=== PATIENT | female | born 1990 | race Caucasian/White ===

== ENCOUNTER 2019-08-16 12:00 | Emergency (ER) | payer OTHER, SELFPAY ==
--- NOTE | 2019-08-16 12:06 | ED.GENADULT ---
HPI - General Adult General Chief complaint: Upper Respiratory Infection Stated complaint: cough/ear pn/fever/chest feels tight Time Seen by Provider: 08/16/19 12:24 Source: patient Mode of arrival: ambulatory Limitations: no limitations History of Present Illness HPI narrative: 29-year-old female patient presents to the [facility] with complaints of cold symptoms for the past week. Patient states that she has had some bilateral ear pain. Patient states that she did recently fly to [place] and states that her ears have been feeling very full and feels like there is a lot of pressure behind her ears and is very painful since flying. Patient states she is also had runny nose, stuffy nose, coughing and a sore throat. Patient states that her kids recently did have influenza B and strep. Patient denies getting a flu shot. Related Data Home Medications Medication Instructions Recorded Confirmed cetirizine 10 mg tablet 10 mg PO DAILY 05/09/19 08/16/19 ferrous sulfate 27 mg PO DAILY 08/16/19 08/16/19 Allergies Allergy/AdvReac Type Severity Reaction Status Date / Time hydrocodone Allergy Unknown Nausea and Verified 08/16/19 12:18 Vomiting Review of Systems Review of Systems: Narrative: CONSTITUTIONAL: Positive fever, body aches, chills, and sweats. EYES: Denies visual changes, redness, or discharge. ENT: Positive rhinorrhea, congestion, sore throat, and bilateral otalgia. CARDIOVASCULAR: Denies chest pain, palpitations, or edema. RESPIRATORY: Positive cough, denies dyspnea. GASTROINTESTINAL: Denies abdominal pain, nausea, vomiting, or diarrhea. GENITOURINARY: Denies dysuria or hematuria. SKIN: Denies rash or itching. MUSCULOSKELETAL: Denies back pain, joint pain, or myalgia. NEUROLOGIC: Denies headache, numbness, or weakness. PSYCHIATRIC: Denies anxiety or depression. [facility] Past Medical History Medical History Anxiety with depression Left elbow fracture Skin lesion Surgical History Surgical History deliv NOS-unsp H/O elbow surgery 2018 H/O wrist surgery 2018 Family History Family History Father No problems noted. Social History Social History Smoking status: Former smoker Smoking end date: 06/20/10 Alcohol intake: current Comments At the time of my signature I agree with nursing past medical history, surgical, social, and family history. There is no relevant family history pertinent to the presenting complaint. Exam Narrative: Exam Narrative: GENERAL: ill-appearing, well-nourished, and in no acute distress. HEAD: Normocephalic, atraumatic. EYES: PERRLA and EOMI. ENT: Nares clear, no rhinorrhea or epistaxis. Mucous membranes moist. Posterior pharynx with no erythema, tonsil enlargement, exudates or lesions present. Bilateral TMs do appear to have a little bit of fluid behind them and you have erythema. No foreign bodies noted to the canal. NECK: Supple. No lymphadenopathy CHEST: Clear to auscultation. No respiratory distress. HEART: Regular rate and rhythm. No murmur heard. Normal peripheral pulses. ABDOMEN: Soft, nontender, nondistended, normal active bowel sounds. EXTREMITIES: Normal range of motion. No edema. SKIN: Warm, dry, no rash. NEURO: No focal deficits. Alert and oriented x3. Course Vital Signs Vital signs: Vital Signs Temperature 37.3 C 08/16/19 12:19 Pulse Rate 117 H 08/16/19 12:19 Respiratory Rate 08/16/19 12:19 Blood Pressure 105/77 08/16/19 12:19 Pulse Oximetry 100 08/16/19 12:19 Temperature 37.3 C 08/16/19 12:19 Pulse Rate 117 H 08/16/19 12:19 Respiratory Rate 08/16/19 12:19 Blood Pressure 105/77 08/16/19 12:19 Pulse Oximetry 100 08/16/19 12:19 Vital signs reviewed. Medical Decision Making Diff
[2019-08-16 12:19] VITALS: BP 105/77; PULSE 117; RESP 20; TEMP 37.3; O2SAT 100
== END 2019-08-16 12:40 | disposition home or self-care (01) ==
PROVIDERS: Emergency Provider Nurse Practitioner Family; PCP Internal Medicine
DX: J10.1 Influenza due to other identified influenza virus with other respiratory manifestations (principal); H66.93 Otitis media, unspecified, bilateral; D64.9 Anemia, unspecified; Z87.891 Personal history of nicotine dependence
CPT/HCPCS: 87804; 87880; 99213; G0463

== ENCOUNTER 2019-10-31 15:55 | Emergency (ER) | payer OTHER, SELFPAY ==
[2019-10-31 15:58] VITALS: BP 109/71; PULSE 95; RESP 20; TEMP 36.8; O2SAT 100
--- NOTE | 2019-10-31 16:52 | ED.FEMALEGU ---
HPI - Female Genitourinary General Chief complaint: Urogenital-Female Stated complaint: UTI sypmtoms Time Seen by Provider: 10/31/19 16:28 Source: patient Mode of arrival: ambulatory Limitations: no limitations History of Present Illness HPI Narrative: Patient is a 29-year-old female who presents to the emergency department with complaint of UTI symptoms. Patient has had symptoms for approximately 2 weeks. Patient tried [id number] urinary analgesic with minimal relief. Patient had a virtual visit with primary care yesterday and was prescribed Bactrim DS for 3 days. Patient was given order for urology referral and a UA after she completes treatment. Patient has prior history of frequent urinary tract infections and is seen urology in the past. After her visit yesterday, she is subsequently developed nausea and vomiting as well as fever of 101. Patient did take 2 doses of her antibiotic. MD elicited complaint: UTI Pertinent past history: recurrent UTIs Onset (ago): week(s) Urinary symptoms: Dysuria, Frequency, Foul Smelling Urine and Flank Pain Associated symptoms: abdominal pain, fever, chills, nausea, vomiting and back pain Treatment prior to arrival: other (Trimethoprim/sulfamethoxazole x2 doses) Related Data Home Medications Medication Instructions Recorded Confirmed cetirizine 10 mg tablet 10 mg PO DAILY 05/09/19 08/16/19 escitalopram oxalate 5 mg tablet 5 mg PO DAILY 10/30/19 Allergies Allergy/AdvReac Type Severity Reaction Status Date / Time hydrocodone Allergy Unknown Nausea and Verified 10/31/19 16:01 Vomiting Review of Systems Review of Systems: All systems reviewed & are unremarkable except as noted in HPI and below Constitutional: Constitutional: Reports chills and Reports fever(s) Gastrointestinal: Gastrointestinal: Reports abdominal pain, Reports nausea and Reports vomiting Genitourinary: Genitourinary: Reports nocturia, Reports dysuria and Reports flank pain Musculoskeletal: Musculoskeletal: Reports back pain [facility] Surgical History Surgical History deliv NOS-unsp H/O elbow surgery 2018 H/O wrist surgery 2018 Social History Social History Smoking status: Former smoker Smoking end date: 06/20/10 Alcohol intake: current Exam Const: General: cooperative, no acute distress and alert Nutritional Appearance: well nourished Orientation/consciousness: patient oriented x3 Limitations: no limitations Resp: Effort & Inspection: normal respiratory effort Auscultation: clear to auscultation bilaterally Cardio: Rate: regular rate Rhythm: regular rhythm GI: GI Palp: Yes Soft to palpation and Yes Tenderness to palpation present (GI) (Diffuse lower abdomen and left flank) Auscultation: normal bowel sounds Back/Spine/Pelvis: Back: CVA tenderness (Bilateral, left worse than) Thoracic/Lumbar Spine: thoraco-lumbar ROM normal Skin: General skin exam: normal color and no rashes or lesions noted Neuro: General: patient oriented x3 Cognition (Neuro): normal cognition Speech: normal speech Extrem: General: normal to inspection, full ROM and no clubbing, cyanosis or edema Psych: Mental Status: mental status grossly normal Affect: normal affect Attitude: cooperative Course Course Emergency Course: Patient afebrile in the emergency department with unremarkable labs. Minimal pyuria noted on urinalysis. Patient has already been on antibiotics for 24 hours and suspect partially treated UTI. Patient given Rocephin in the emergency department. She feels better after IV fluids, Toradol, and Zofran. Will give Zofran to take at home and advised to continue current antibiotic and follow-up urine culture results with her primary care physician's office in the next couple of days. Patient is nontoxic with no evidence of pyelonephritis or sepsis. Vital Signs Vital si
[2019-10-31] MEDS: KETOROLAC 30 MG/ML VIAL (*BKC) IV PUSH (17:05)
[2019-10-31] MEDS: ONDANSETRON INJ 4 MG/2 ML VIAL IV PUSH (17:05)
[2019-10-31] MEDS: LACTATED RINGERS 1,000 ML 999 ML IV CONT (17:06)
[2019-10-31 17:21] LABS: Basophils Percent Auto 0.5 % (0.2-1.2); Eosinophils Percent Auto 0.3 % (0-4.4); Hematocrit 40.4 % (37.0-47.0); Hemoglobin 13.7 g/dL (12.0-15.0); Immature Granulocyte Absolute 0.01 K/mm3 (0.00-0.031); Immature Granulocyte Percent A 0.2 % (0-0.5); Lymphocytes Percent Auto 30.8 % (18.3-44.2); Mean Corpuscular HGB Conc 33.9 g/dl (32-36); Mean Corpuscular Hemoglobin 31.1 pg (26-34); Mean Corpuscular Volume 91.8 fl (80-100); Mean Platelet Volume 10.1 fl (7.4-10.4); Monocytes Absolute Auto 0.4 K/mm3 (0.1-0.6); Monocytes Percent Auto 7.1 % (2.6-8.5); Neutrophils Absolute Auto 3.8 K/mm3 (1.3-6.7); Neutrophils Percent Auto 61.1 % (45.5-73.1); Platelet Count Result 184 k/mm3 (150-375); Red Cell Distribution Width 13.1 % (11.5-14.5); White Blood Count 6.2 K/mm3 (4.5-10.0)
[2019-10-31 17:26] LABS: Add Urine Microscopic? YES; Amorphous Sediment Urine Few; Appearance Urine Clear (Clear); Bacteria Urine Trace /hpf; Bilirubin Urine Negative (Negative); Blood Urine Negative (Negative); Color Urine Straw (Yellow); Glucose Urine UA Negative (Negative); Ketones Urine Negative (Negative); Leukocyte Esterase Ur 2+ LEU/UL (Negative); Mucus Urine Rare /lpf; Nitrate Urine Negative (Negative); Protein Urine Negative (Negative); RBC Urine 0-2 /hpf (0-2); Specific Grav Ur 1.009 (1.001-1.035); Squamous Epithelial Cell Urine Many /hpf (Few); Urobilinogen Urine Negative mg/dL (<2.0)
[2019-10-31 17:29] LABS: Alanine Aminotransferase 10 U/L (4-35); Albumin Level 4.3 g/dL (3.5-5.1); Alkaline Phosphatase 49 U/L (38-126); Aspartate Amino Transferase 24 U/L (14-36); Blood Urea Nitrogen 10 mg/dL (7-17); Calcium 8.2 mg/dL (8.4-10.2); Carbon Dioxide 19 mmol/L (22-30); Chloride 108 mmol/L (98-107); Estimated Glomerular Filt Rate > 60; Glucose 77 mg/dL (65-105); Potassium 4.1 mmol/L (3.4-5.0); Sodium 136 mmol/L (137-145)
[2019-10-31 18:02] VITALS: BP 101/67; PULSE 68
[2019-10-31 18:03] VITALS: BP 102/76; BP 118/74; PULSE 66; PULSE 73
[2019-10-31 20:22] VITALS: BP 112/74; PULSE 91; RESP 16; TEMP 36.7; O2SAT 99
== END 2019-10-31 20:22 | disposition home or self-care (01) ==
PROVIDERS: Emergency Provider Emergency Medicine; PCP Internal Medicine
DX: N30.00 Acute cystitis without hematuria (principal); Z87.891 Personal history of nicotine dependence
CPT/HCPCS: 36415; 80053; 81001; 81025; 85025; 87086; 96361; 96365; 96375; 99284; J0696; J1885; J2405; J7120

== ENCOUNTER 2019-11-06 16:12 | Outpatient (CLI) | payer OTHER, SELFPAY ==
[2019-11-06 16:47] LABS: Add Urine Microscopic? NO; Appearance Urine Clear (Clear); Bilirubin Urine Negative (Negative); Blood Urine Negative (Negative); Color Urine Colorless (Yellow); Glucose Urine UA Negative (Negative); Ketones Urine Negative (Negative); Leukocyte Esterase Ur Negative LEU/UL (Negative); Nitrate Urine Negative (Negative); Protein Urine Negative (Negative); Specific Grav Ur 1.005 (1.001-1.035); Urobilinogen Urine Negative mg/dL (<2.0)
== END 2019-11-06 16:13 | disposition home or self-care (01) ==
PROVIDERS: PCP Internal Medicine; Visit Provider Clinical Nurse Specialist
DX: N39.0 Urinary tract infection, site not specified (principal)
CPT/HCPCS: 81003

== ENCOUNTER 2019-12-05 12:10 | Emergency (ER) | payer OTHER, SELFPAY ==
--- NOTE | 2019-12-05 12:35 | ED.FEMALEGU ---
HPI - Female Genitourinary General Chief complaint: Urogenital-Female Stated complaint: uti Time Seen by Provider: 12/05/19 13:20 Source: patient and RN notes reviewed Mode of arrival: ambulatory Limitations: no limitations History of Present Illness HPI Narrative: 29-year-old female presents with concern for possible urinary tract infection. Reports history of frequent urinary tract infections. Reports left flank pain, frequency, urgency, dysuria for 2 days. Reports nausea without vomiting. Reports she has been increasing her fluid intake. Reports fever up to 102. MD elicited complaint: UTI Related Data Home Medications Medication Instructions Recorded Confirmed cetirizine 10 mg tablet 10 mg PO DAILY 05/09/19 08/16/19 escitalopram oxalate 5 mg tablet 5 mg PO DAILY 10/30/19 Albuterol Neb. 12/05/19 Allergies Allergy/AdvReac Type Severity Reaction Status Date / Time hydrocodone Allergy Unknown Nausea and Verified 10/31/19 16:01 Vomiting Review of Systems Review of Systems: Narrative: CONSTITUTIONAL: Denies malaise, chills, sweats. Reports fever. CARDIOVASCULAR: Denies chest pain, palpitations, or edema. RESPIRATORY: Denies cough or dyspnea. GASTROINTESTINAL: Denies abdominal pain, vomiting, diarrhea. Reports nausea GENITOURINARY: Reports dysuria, frequency, urgency. Denies abnormal vaginal discharge or hematuria. MUSCULOSKELETAL: Reports left flank pain. Denies myalgia. NEUROLOGIC: Denies headache. All systems reviewed & are unremarkable except as noted in HPI and below PMFSH Social History Social History Smoking status: Former smoker Smoking end date: 06/20/10 Alcohol intake: current Comments At time of signature, agree with nursing past medical, surgical, social and family history. There is no relevant family history pertinent to the presenting complaint Exam Narrative: Exam Narrative: GENERAL: Well-appearing, well-nourished, and in no acute distress. HEAD: Normocephalic. EYES: PERRLA, conjunctivae clear. NECK: Supple. No lymphadenopathy CHEST: Clear to auscultation. No respiratory distress. HEART: Regular rate and rhythm. No murmur heard. Normal peripheral pulses. ABDOMEN: Soft, nontender upon palpation, nondistended. Left CVA tenderness SKIN: Warm, dry, no rash. NEURO: Alert and oriented x3. PSYCH: Normal mood and affect Course Course Emergency Course: Discussed with patient limited diagnostic capability at the [facility]. Discussed with patient possibility of transfer to emergency room for further evaluation. Patient at this time chooses to treat possible urinary tract infection with antibiotic instead of going to the emergency room for further evaluation. She reports she will go to emergency room if symptoms worsen or do not improve, verbalizes understanding of reasons to go the emergency room. Discussed with patient urine culture results from urinalysis done on October 31, 2019 when she was previously having urinary tract infection symptoms. Patient understands this culture did not grow bacteria. Patient is aware of diagnosis, understands and agrees to treatment plan. Anticipatory guidance given. Patient agrees to follow-up as directed and is aware of reasons to seek care at the emergency department. Portions of this record may have been created with voice recognition software Vital Signs Vital signs: Vital Signs Temperature 99.2 F 12/05/19 13:02 Pulse Rate 85 12/05/19 13:02 Respiratory Rate 16 12/05/19 13:02 Blood Pressure 109/64 12/05/19 13:02 Pulse Oximetry 98 12/05/19 13:02 Temperature 99.2 F 12/05/19 13:02 Pulse Rate 85 12/05/19 13:02 Respiratory Rate 16 12/05/19 13:02 Blood Pressure 109/64 12/05/19 13:02 Pulse Oximetry 98 12/05/19 13:02 Reviewed. MDM - Female Genitourinary MDM Narrative Medical decision making narrative: Exam findings and UA show no acute concerns or escobar
[2019-12-05 13:02] VITALS: BP 109/64; PULSE 85; RESP 16; TEMP 37.3; O2SAT 98
== END 2019-12-05 13:37 | disposition home or self-care (01) ==
PROVIDERS: Emergency Provider Nurse Practitioner; PCP Internal Medicine
DX: R30.0 Dysuria (principal); R35.0 Frequency of micturition; R10.9 Unspecified abdominal pain; Z87.891 Personal history of nicotine dependence; J45.909 Unspecified asthma, uncomplicated; Z87.442 Personal history of urinary calculi; Z86.2 Personal history of diseases of the blood and blood-forming organs and certain disorders involving the immune mechanism
CPT/HCPCS: 81003; 87086; 99213; G0463

== ENCOUNTER 2019-12-08 09:48 | Emergency (ER) | payer OTHER, SELFPAY ==
--- NOTE | ~2019-12-08 | CT_ITS ---
EXAMINATION: CT abdomen pelvis wo con DATE: 12/08/2019 10:51 INDICATION: Left-sided abdominal pain TECHNIQUE: Computed tomography (CT) of the abdomen and pelvis was performed without intravenous contr ast. The dose-length product was 182.69 mGy-cm. Automated exposure control and iterative reconstructi on technique were employed. COMPARISON: CT dated 05/11/2019 FINDINGS: Lung bases are unremarkable. Heart size normal. No significant pleural or pericardial effus ion. The liver, spleen, pancreas, adrenal glands and kidneys are unremarkable for noncontrast CT. Nonobstr uctive bowel gas pattern. No free air or free fluid. Gallbladder is present. There is a U-shaped tani ce in the vagina. No free air or free fluid. No acute osseous abnormality. IMPRESSION: 1. No acute abdominal abnormality. Reviewed, dictated and finalized at location A.
[2019-12-08 09:54] VITALS: BP 115/79; PULSE 74; RESP 18; TEMP 36.8; O2SAT 100
--- NOTE | 2019-12-08 10:24 | ED.ABDPAIN ---
HPI - Abdominal Pain General Chief Complaint: Abdominal Pain Stated Complaint: L sided abd pain Time Seen by Provider: 12/08/19 10:07 Source: patient Mode of arrival: ambulatory Limitations: no limitations History of Present Illness HPI narrative: This is a 29 year old female that presents to the ER for left sided flank pain x 1 week. Reports dysuria which has improved after being treated for a UTI at the urgent care 3 days ago. Reports she has continued to have left flank pain which prompted her to be seen. Reports the pain is constant and sharp. Also reports nausea. Worse when she lays down. Denies fever, vomiting, hematuria, or diarrhea. Related Data Home Medications Medication Instructions Recorded Confirmed cetirizine 10 mg tablet 10 mg PO DAILY 05/09/19 08/16/19 escitalopram oxalate 5 mg tablet 5 mg PO DAILY 10/30/19 Allergies Allergy/AdvReac Type Severity Reaction Status Date / Time hydrocodone Allergy Unknown Nausea and Verified 12/08/19 09:57 Vomiting Review of Systems Review of Systems: Narrative: CONSTITUTIONAL: Denies fever GASTROINTESTINAL: Reports abdominal pain, nausea. Denies vomiting, or diarrhea. GENITOURINARY: Denies dysuria or hematuria. MUSCULOSKELETAL: Reports back pain All systems reviewed & are unremarkable except as noted in HPI and below PMFSH Social History Social History Smoking status: Former smoker Smoking end date: 06/20/10 Alcohol intake: current Gender identity (if verbalized by the patient): Female Exam Narrative: Exam Narrative: GENERAL: Well-appearing, well-nourished, and in no acute distress. HEAD: Normocephalic, atraumatic. EYES: EOMI. CHEST: Clear to auscultation. No respiratory distress. No wheezes rales or rhonchi HEART: Regular rate and rhythm. No murmur heard. Normal peripheral pulses. ABDOMEN: Soft, nondistended, normal active bowel sounds. Mild tenderness to palpation of the left side of the abdomen, without guarding EXTREMITIES: Normal range of motion. No edema. SKIN: Warm, dry, no rash. NEURO: No focal deficits. Alert and oriented x3. PSYCH: Normal mood and affect Course Vital Signs Vital signs: Vital Signs Temperature 98.3 F 12/08/19 09:54 Pulse Rate 74 12/08/19 09:54 Respiratory Rate 18 12/08/19 09:54 Blood Pressure 115/79 12/08/19 09:54 Pulse Oximetry 100 12/08/19 09:54 Temperature 98.3 F 12/08/19 09:54 Pulse Rate 74 12/08/19 09:54 Respiratory Rate 18 12/08/19 09:54 Blood Pressure 115/79 12/08/19 09:54 Pulse Oximetry 100 12/08/19 09:54 MDM - Abdominal Pain MDM Narrative Medical decision making narrative: Patient presents the emergency department for left-sided flank pain x1 week. Was recently treated by urgent care for urinary tract infection. Patient is afebrile and nontoxic-appearing. CBC and metabolic panel are without acute findings. UA without evidence of infection. Bedside test is negative. CT scan of the abdomen and pelvis is without acute findings. Patient was updated on case findings. Patient is stable and felt appropriate for further outpatient evaluation. She was instructed to finish her antibiotic as prescribed. Patient is on ciprofloxacin currently. She is to follow-up with her primary care doctor. She was given warnings to return to the ER Lab Data Attestation: I reviewed the patient's lab results. Result diagrams: 12/08/19 10:18 12/08/19 10:18 Labs: Lab Results 12/08/19 12/08/19 12/08/19 Range/Units 10:18 10:18 10:19 WBC 5.5 (4.5-10.0) K/mm3 RBC 4.22 (4.2-5.4) M/mm3 Hgb 13.1 (12.0-15.0) g/dL Hct 39.1 (37.0-47.0) % MCV 92.7 (80-100) fl MCH 31.0 (26-34) pg MCHC 33.5 (32-36) g/dl RDW 13.1 (11.5-14.5) % Plt Count 186 (150-375) k/mm3 MPV 9.7 (7.4-10.4) fl Immature Gran % (Auto) 0.2 (0-0.5) % Neut % (Auto) 60.7 (45.5-73.1
[2019-12-08 10:25] LABS: Basophils Percent Auto 0.5 % (0.2-1.2); Eosinophils Percent Auto 0.5 % (0-4.4); Hematocrit 39.1 % (37.0-47.0); Hemoglobin 13.1 g/dL (12.0-15.0); Immature Granulocyte Absolute 0.01 K/mm3 (0.00-0.031); Immature Granulocyte Percent A 0.2 % (0-0.5); Lymphocytes Absolute Auto 1.69 K/mm3 (0.9-3.2); Lymphocytes Percent Auto 30.7 % (18.3-44.2); Mean Corpuscular HGB Conc 33.5 g/dl (32-36); Mean Corpuscular Volume 92.7 fl (80-100); Mean Platelet Volume 9.7 fl (7.4-10.4); Monocytes Absolute Auto 0.4 K/mm3 (0.1-0.6); Monocytes Percent Auto 7.4 % (2.6-8.5); Neutrophils Absolute Auto 3.3 K/mm3 (1.3-6.7); Neutrophils Percent Auto 60.7 % (45.5-73.1); Platelet Count Result 186 k/mm3 (150-375); Red Blood Count 4.22 M/mm3 (4.2-5.4); Red Cell Distribution Width 13.1 % (11.5-14.5); White Blood Count 5.5 K/mm3 (4.5-10.0)
[2019-12-08 10:30] LABS: Add Urine Microscopic? YES; Appearance Urine Clear (Clear); Bacteria Urine Trace /hpf; Bilirubin Urine Negative (Negative); Blood Urine 2+ (Negative); Color Urine Straw (Yellow); Glucose Urine UA Negative (Negative); Ketones Urine Negative (Negative); Leukocyte Esterase Ur Negative LEU/UL (Negative); Mucus Urine Rare /lpf; Nitrate Urine Negative (Negative); Protein Urine Negative (Negative); RBC Urine 0-2 /hpf (0-2); Specific Grav Ur 1.009 (1.001-1.035); Squamous Epithelial Cell Urine Occasional /hpf (Few); Urobilinogen Urine Negative mg/dL (<2.0); WBC Urine 0-3 /hpf
[2019-12-08 10:37] LABS: Alanine Aminotransferase 10 U/L (4-35); Albumin Level 4.8 g/dL (3.5-5.1); Alkaline Phosphatase 60 U/L (38-126); Aspartate Amino Transferase 22 U/L (14-36); Bilirubin,Total 0.8 mg/dL (0.2-1.3); Blood Urea Nitrogen 11 mg/dL (7-17); Calcium 8.9 mg/dL (8.4-10.2); Carbon Dioxide 25 mmol/L (22-30); Chloride 104 mmol/L (98-107); Estimated CRCL calculation 76 ml/min; Estimated Glomerular Filt Rate > 60; Glucose 98 mg/dL (65-105); Lipase 79 U/L (23-300); Sodium 138 mmol/L (137-145)
[2019-12-08] MEDS: ONDANSETRON INJ 4 MG/2 ML VIAL IV PUSH (11:12)
[2019-12-08] MEDS: SODIUM CHLORIDE 0.9% IV 1,000 ML 999 ML IV CONT (11:13)
[2019-12-08 11:39] VITALS: BP 96/70; PULSE 70; RESP 16; O2SAT 100
== END 2019-12-08 12:22 | disposition home or self-care (01) ==
PROVIDERS: Physician Assistant; Emergency Provider Emergency Medicine; PCP Internal Medicine
DX: R10.9 Unspecified abdominal pain (principal); Z87.891 Personal history of nicotine dependence
CPT/HCPCS: 36415; 74176; 80053; 81001; 81025; 83690; 85025; 96365; 96375; 99284; J0131; J2405; J7030

== ENCOUNTER 2020-01-07 10:51 | Emergency (ER) | payer OTHER, SELFPAY ==
[2020-01-07 11:16] VITALS: BP 96/65; PULSE 89; RESP 16; TEMP 36.3; O2SAT 99
--- NOTE | 2020-01-07 11:40 | ED.URI ---
HPI - URI/Sore Throat General Chief Complaint: Upper Respiratory Infection Stated Complaint: upper respiratory infection Time Seen by Provider: 01/07/20 11:28 Source: patient and RN notes reviewed Mode of arrival: ambulatory Limitations: no limitations History of Present Illness HPI Narrative: Patient presents today complaining of a 6-day history of sore throat and left ear pain. Denies fever, cough, congestion, rhinorrhea, vomiting or diarrhea. Currently rates her pain 6/10 and has been taking Zyrtec without relief. Patient also states that she noted a sore on the left side of her throat yesterday. MD elicited complaint: sore throat Related Data Home Medications Medication Instructions Recorded Confirmed cetirizine 10 mg tablet 10 mg PO DAILY 05/09/19 01/07/20 escitalopram oxalate 5 mg tablet 5 mg PO DAILY 10/30/19 Allergies Allergy/AdvReac Type Severity Reaction Status Date / Time hydrocodone Allergy Unknown Nausea and Verified 12/08/19 09:57 Vomiting Review of Systems Review of Systems: Narrative: CONSTITUTIONAL: Denies body aches, fever, chills, or sweats. EYES: Denies visual changes, redness, or discharge. ENT: Denies rhinorrhea, congestion. + Sore throat, left ear pain, sore in throat CARDIOVASCULAR: Denies chest pain, palpitations, or edema. RESPIRATORY: Denies cough or dyspnea. GASTROINTESTINAL: Denies abdominal pain, nausea, vomiting, or diarrhea. GENITOURINARY: Denies dysuria or hematuria. SKIN: Denies rash, itching, or wounds. MUSCULOSKELETAL: Denies back pain, joint pain, or myalgia. NEUROLOGIC: Denies headache, numbness, tingling, or weakness. PSYCH: Denies depression or anxiety. PMFSH Social History Social History Smoking status: Former smoker Smoking end date: 06/20/10 Alcohol intake: current Gender identity (if verbalized by the patient): Female Comments At time of signature, I have reviewed and agree with nursing past medical, surgical, social and family history unless otherwise noted. Please see nursing chart for further information. There is no relevant family history pertinent to the presenting complaint Exam Narrative: Exam Narrative: GENERAL: Well-appearing, well-nourished, and in no acute distress. HEAD: Normocephalic, atraumatic. EYES: EOMI. No redness or drainage. Conjunctivae normal. ENT: Mucous membranes pink and moist. Nares clear. No rhinorrhea. TMs normal bilaterally. Throat normal. Uvula midline. 4 mm whitish superficial ulceration to the left lateral portion of the soft palate. NECK: Normal AROM. Supple. No lymphadenopathy. CHEST: No respiratory distress. Clear to auscultation. HEART: Regular rate and rhythm. No murmur appreciated. Normal peripheral pulses. EXTREMITIES: Normal range of motion. No edema. SKIN: Warm, dry, no rash. Capillary refill normal. Normal skin turgor. NEURO: No focal deficits. Alert and oriented x3. Gait steady. PSYCH: Normal affect. No signs of depression or anxiety. Course Course Emergency Course: Patient has declined COVID-19 testing. Vital Signs Vital signs: Vital Signs Temperature 97.3 F L 01/07/20 11:16 Pulse Rate 89 01/07/20 11:16 Respiratory Rate 16 01/07/20 11:16 Blood Pressure 96/65 L 01/07/20 11:16 Pulse Oximetry 99 01/07/20 11:16 Temperature 97.3 F L 01/07/20 11:16 Pulse Rate 89 01/07/20 11:16 Respiratory Rate 16 01/07/20 11:16 Blood Pressure 96/65 L 01/07/20 11:16 Pulse Oximetry 99 01/07/20 11:16 Reviewed MDM - URI/Sore Throat Differential Diagnosis Differential diagnosis: Likely upper respiratory infection, otitis media, sinusitis, viral infection, pharyngitis and other (Strep throat, canker sore, COVID-19) Lab Data Attestation: I reviewed the patient's lab results. Labs: Strep Screen Presumptive Negative *(Reference Range: Negative)* Critical Care Time Critical Care Time Critical Car
== END 2020-01-07 11:55 | disposition home or self-care (01) ==
PROVIDERS: Emergency Provider Nurse Practitioner; PCP Internal Medicine
DX: J30.9 Allergic rhinitis, unspecified (principal); Z87.891 Personal history of nicotine dependence; J45.909 Unspecified asthma, uncomplicated
CPT/HCPCS: 87081; 87880; 99213; G0463

== ENCOUNTER 2020-04-03 09:31 | Outpatient (CLI) | payer OTHER, SELFPAY ==
--- NOTE | ~2020-04-03 | CT_ITS ---
EXAMINATION: CT pelvis w con INDICATION: Pelvic mass in female, chronic cystitis TECHNIQUE: Computed tomographic images of the pelvis were obtained after the administration of 100 cc of Omnipaque 350 intravenous contrast. The dose-length product (DLP) was 104.38 mGy-cm. Automated ex posure control and iterative reconstruction technique were employed. COMPARISON: None FINDINGS: No pelvic mass is identified. No suspicious bladder mass is evident. There are no dilated l oops of bowel. No pathologically enlarged pelvic lymph nodes are identified. A corpus luteum is noted in the left ovary. There is no free intraperitoneal gas. A moderate volume of colonic stool is prese nt. The visualized osseous structures are unremarkable. IMPRESSION: 1. No suspicious pelvic mass identified. Reviewed, dictated and finalized at location A.
== END 2020-04-03 09:32 | disposition home or self-care (01) ==
LOC: ANHIMG 09:35
PROVIDERS: PCP Internal Medicine; Visit Provider Urology
DX: N83.12 Corpus luteum cyst of left ovary (principal)
CPT/HCPCS: 72193; Q9967

== ENCOUNTER 2020-06-18 19:45 | Emergency (ER) | payer OTHER, SELFPAY ==
[2020-06-18 19:50] VITALS: BP 113/78; PULSE 87; RESP 16; TEMP 36.8; O2SAT 99
[2020-06-18 20:16] LABS: Basophils Percent Auto 0.2 % (0.2-1.2); Eosinophils Percent Auto 0.2 % (0-4.4); Hematocrit 38.6 % (37.0-47.0); Hemoglobin 13.5 g/dL (12.0-15.0); Immature Granulocyte Absolute 0.04 K/mm3 (0.00-0.031); Immature Granulocyte Percent A 0.3 % (0-0.5); Lymphocytes Absolute Auto 1.63 K/mm3 (0.9-3.2); Lymphocytes Percent Auto 13.1 % (18.3-44.2); Mean Corpuscular Hemoglobin 31.8 pg (26-34); Mean Platelet Volume 10.1 fl (7.4-10.4); Monocytes Absolute Auto 0.6 K/mm3 (0.1-0.6); Monocytes Percent Auto 4.8 % (2.6-8.5); Neutrophils Absolute Auto 10.2 K/mm3 (1.3-6.7); Neutrophils Percent Auto 81.4 % (45.5-73.1); Platelet Count Result 213 k/mm3 (150-375); Red Blood Count 4.24 M/mm3 (4.2-5.4); Red Cell Distribution Width 13.4 % (11.5-14.5); White Blood Count 12.5 K/mm3 (4.5-10.0)
[2020-06-18] MEDS: SODIUM CHLORIDE 0.9% IV 1,000 ML 999 ML IV CONT (20:26)
[2020-06-18] MEDS: METOCLOPRAMIDE HCL INJ 10 MG/2 ML VIAL IV PUSH (20:26)
[2020-06-18 20:27] VITALS: BP 102/75; PULSE 88
[2020-06-18 20:28] VITALS: BP 99/77; PULSE 95
[2020-06-18 20:29] LABS: Alanine Aminotransferase 10 U/L (4-35); Albumin Level 4.5 g/dL (3.5-5.1); Alkaline Phosphatase 60 U/L (38-126); Anion Gap 12 mmol/L (8-16); Aspartate Amino Transferase 24 U/L (14-36); Bilirubin,Total 1.1 mg/dL (0.2-1.3); Blood Urea Nitrogen 8 mg/dL (7-17); Calcium 9.3 mg/dL (8.4-10.2); Carbon Dioxide 22 mmol/L (22-30); Chloride 101 mmol/L (98-107); Estimated CRCL calculation 121 ml/min; Estimated Glomerular Filt Rate > 60; Glucose 83 mg/dL (65-105); Lipase 75 U/L (23-300); Potassium 3.6 mmol/L (3.4-5.0); Sodium 135 mmol/L (137-145)
[2020-06-18 20:30] VITALS: BP 107/73; PULSE 116
[2020-06-18 21:04] LABS: Add Urine Microscopic? YES; Appearance Urine Cloudy (Clear); Bacteria Urine Trace /hpf; Bilirubin Urine Negative (Negative); Blood Urine 1+ (Negative); Color Urine Yellow (Yellow); Glucose Urine UA Negative (Negative); Ketones Urine 2+ mg/dL (Negative); Leukocyte Esterase Ur 2+ LEU/UL (Negative); Mucus Urine Heavy /lpf; Nitrate Urine Negative (Negative); Protein Urine 1+ mg/dL (Negative); Specific Grav Ur 1.026 (1.001-1.035); Squamous Epithelial Cell Urine Moderate /hpf (Few); Urobilinogen Urine Negative mg/dL (<2.0); WBC Urine 21-30 /hpf
--- NOTE | 2020-06-18 23:13 | ED.GENADULT ---
HPI - General Adult General Chief complaint: Nausea/Vomiting/Diarrhea Stated complaint: nausea/vomiting- Time Seen by Provider: 06/18/20 19:55 History of Present Illness HPI narrative: Patient 21-year-old female presents emerged department chief complaint of nausea and vomiting. Patient reports that she is approximately 7 weeks and has been followed by OB and has had nausea throughout the . The patient states that she started vomiting and has been unable to keep down even water. The patient states that she has had some abdominal cramping with this and reports that she has not had any vaginal bleeding or vaginal discharge. Related Data Home Medications Medication Instructions Recorded Confirmed cetirizine 10 mg tablet 10 mg PO DAILY 05/09/19 01/07/20 escitalopram oxalate 5 mg tablet 5 mg PO DAILY 10/30/19 Allergies Allergy/AdvReac Type Severity Reaction Status Date / Time hydrocodone AdvReac Unknown Nausea and Verified 06/18/20 20:10 Vomiting Review of Systems Review of Systems: Narrative: A 10 system review of systems was completed on the patient and is negative except for what is stated in the HPI. Nursing and ancillary documentation was reviewed. [facility] Past Medical History Medical History (Updated 06/18/20 @ 23:16 by Bert Reyes MD) Anxiety with depression Frequent UTI Left elbow fracture Skin lesion Surgical History Surgical History deliv NOS-unsp H/O elbow surgery 2018 H/O wrist surgery 2018 Family History Family History Father No problems noted. Social History Social History Smoking status: Former smoker Smoking end date: 06/20/10 Alcohol intake: current Gender identity (if verbalized by the patient): Female Exam Narrative: Exam Narrative: GENERAL: Well-appearing, well-nourished, and in no acute distress. HEAD: Normocephalic, atraumatic. EYES: PERRLA and EOMI. ENT: Nares clear, no rhinorrhea or epistaxis. Mucous membranes moist. NECK: Supple. CHEST: Clear to auscultation. No respiratory distress. HEART: Regular rate and rhythm. No murmur heard. Normal peripheral pulses. ABDOMEN: Soft, nontender, nondistended, normal active bowel sounds. EXTREMITIES: Normal range of motion. No edema. SKIN: Warm, dry, no rash. NEURO: No focal deficits. Alert and oriented x3. PSYCH: Normal mood and affect. Course Course Emergency Course: Patient received a dose of IV Reglan in the emergency department as well as normal saline boluses. The patient is feeling much better at this time and is able to tolerate p.o. intake. Vital Signs Vital signs: Vital Signs Temperature 36.8 C 06/18/20 19:50 Pulse Rate 87 06/18/20 19:50 Respiratory Rate 16 06/18/20 19:50 Blood Pressure 113/78 06/18/20 19:50 Pulse Oximetry 99 06/18/20 19:50 Temperature 36.8 C 06/18/20 19:50 Pulse Rate 116 H 06/18/20 20:30 Respiratory Rate 16 06/18/20 19:50 Blood Pressure 107/73 06/18/20 20:30 Pulse Oximetry 99 06/18/20 19:50 Medical Decision Making Vital Signs Vital Signs: Vital Signs Temperature 36.8 C 06/18/20 19:50 Pulse Rate 87 06/18/20 19:50 Respiratory Rate 16 06/18/20 19:50 Blood Pressure 113/78 06/18/20 19:50 Pulse Oximetry 99 06/18/20 19:50 Temperature 36.8 C 06/18/20 19:50 Pulse Rate 116 H 06/18/20 20:30 Respiratory Rate 16 06/18/20 19:50 Blood Pressure 107/73 06/18/20 20:30 Pulse Oximetry 99 06/18/20 19:50 Lab Data Result diagrams: 06/18/20 20:05 06/18/20 20:05 Labs: Lab Results 06/18/20 06/18/20 06/18/20 Range/Units 20:05 20:05 20:53 WBC 12.5 H (4.5-10.0) K/mm3 RBC 4.24 (4.2-5.4) M/mm3 Hgb 13.5 (12.0-15.0) g/dL Hct 38.6 (37.0-47
[2020-06-18 23:50] VITALS: BP 108/69; PULSE 89; RESP 20; O2SAT 95
== END 2020-06-18 23:52 | disposition home or self-care (01) ==
PROVIDERS: Emergency Provider Emergency Medicine; PCP Internal Medicine
DX: O21.0 Mild hyperemesis gravidarum (principal); O23.41 Unspecified infection of urinary tract in pregnancy, first trimester; Z3A.01 Less than 8 weeks gestation of pregnancy
CPT/HCPCS: 36415; 80053; 81001; 83690; 84702; 85025; 87086; 96361; 96374; 99284; J2765; J7030

== ENCOUNTER 2020-06-26 16:19 | Observation (INO) | payer OTHER, SELFPAY ==
[2020-06-26 17:05] VITALS: BP 104/73; PULSE 92
[2020-06-26 17:10] VITALS: TEMP 36.1; BMI 15.7
[2020-06-26] MEDS: DEXTROSE 5%/LACTATED RINGERS 1,000 ML 999 ML IV CONT (17:14)
[2020-06-26] MEDS: ONDANSETRON INJ 4 MG/2 ML VIAL IV PUSH (17:15)
[2020-06-26] MEDS: FAMOTIDINE 20 MG/2 ML VIAL IV PUSH (17:16)
--- NOTE | 2020-06-26 17:23 | OBADM ---
This patient, Galina Truong, admitted to the OB room OB Post 116 for observation. Patient/family oriented to hospital policies and general routines including ID bracelet, bed and alarms, visiting hours, pain management, procedures, bathroom and other care routines, personal items, smoking policy, room service/diet, call light,and visiting hours. Patient/Family are encouraged to report perceived risks to care and to ask questions if they do not understand what they are told or what they should do.
[2020-06-26] MEDS: DEXTROSE 5%/LACTATED RINGERS 1,000 ML 150 ML IV CONT (18:15)
[2020-06-26 18:23] VITALS: BP 100/63; PULSE 79
[2020-06-26 18:30] VITALS: TEMP 36.5
--- NOTE | 2020-06-26 20:45 | PC.NURSE ---
IV discontinued. Dressing applied.
--- NOTE | 2020-06-26 21:00 | PC.NURSE ---
Addendum entered by Karl Matos RN 06/26/20 21:01: 1830 NOTE SHOULD BE TIMED Original Note: Resting quietly. States nausea has improved since Zofran but still has some.
--- NOTE | 2020-06-26 21:02 | PC.NURSE ---
2009 Pt was able to keep down full liquids. States nausea has resolved and would like to go home.
--- NOTE | 2020-07-04 07:46 | P.DS_ITS ---
DS: Admitting Diagnosis Admitting Diagnosis Admitting Diagnosis: uti/abd pain DS: Discharge Diagnosis Discharge Diagnosis (1) Abdominal pain: Qualifiers: Abdominal location: left upper quadrant Qualified Code(s): R10.12 - Left upper quadrant pain Code(s): R10.9 - Unspecified abdominal pain Status: Acute OB - DS: Summary OB Procedures : None OB Procedures Intrapartum: Other (undelivered) OB Procedures: : None Time Spent with Patient Time attestation: Total time spent providing and/or coordinating discharge services: Discharge Plan Discharge Attending physician on discharge: Lee Ramirez Consulting providers: Gillian Villagran Discharging Clinician: Lee Ramirez Patient Disposition: Home, Self-Care Activity: as tolerated Diet: as tolerated Discharge Instructions: OB ANTEPARTUM DISCHARGE INSTRUCTIONS This information is given to help you properly care for yourself at home after your discharge from the hospital. Follow these instructions until your doctor tells you otherwise. DIET: Eat Three Well Balanced Meals per Day Small Frequent Feedings Drink at Least Eight 8-Ounce Glasses of Caffeine-Free Beverages Daily [place] Advance As Tolerated Additional Diet Instructions: ACTIVITY: As Tolerated Increase Periods of Rest Additional Activity Instructions: RETURN TO LABOR AND DELIVERY IF YOU HAVE: Any Leakage of Fluid More than 6 Contractions in an Hour Vaginal Bleeding Additional Reasons to Return to Labor and Delivery: Contractions may feel like abdominal pain, tightening, cramping, pressure, back ache, or thigh ache. FOLLOW-UP CARE: Keep Next Scheduled Appointment To see in/on Valuables released to patient or family? N/A Medications from home returned to patient? N/A I Have Received Information Regarding Effective Home Pain Management I Acknowledge Receipt of and Understand the Above Instructions IF YOU HAVE ANY QUESTIONS REGARDING THESE INSTRUCTIONS, PLEASE CALL [phone]. IF PROBLEMS ARISE, CALL YOUR PROVIDER. IF EMERGENCY CARE IS NEEDED, [facility] EM[facility] RO[facility] IS AVAILABLE 24 HOURS A DAY. Stand Alone Forms: General Discharge Information Follow-up/Referrals: Lee Ramirez MD [Physician] - Discharge Medications: New ondansetron 4 mg Tablet,Disintegrating 4 mg PO Q6H PRN (Reason: Nausea And Vomiting) 7 Days Qty: 28 RF: 0 Continued cetirizine [Zyrtec] 10 mg tablet 10 mg PO DAILY RF: 0 Discontinued metoclopramide HCl [Reglan] 10 mg tablet 10 mg PO Q6H PRN (Reason: nausea and vomiting) Qty: 20 RF: 0 Date of admission: 06/26/20 16:19 Primary Care Provider: Eddie Gonzalez Admitting Provider: Lee Ramirez Attending physician on admission: Lee Ramirez Condition: Stable
== END 2020-06-26 20:55 | disposition home or self-care (01) ==
PROVIDERS: Admitting Provider Obstetrics & Gynecology; PCP Internal Medicine; Visit Provider Obstetrics & Gynecology
DX: O23.40 Unspecified infection of urinary tract in pregnancy, unspecified trimester (principal); R10.12 Left upper quadrant pain; Z3A.00 Weeks of gestation of pregnancy not specified
CPT/HCPCS: 96374; 96375; G0378; G0379; J2405; J7121

== ENCOUNTER 2020-08-03 18:57 | Emergency (ER) | payer OTHER, SELFPAY ==
[2020-08-03 18:57] VITALS: BP 126/86; PULSE 110; RESP 16; TEMP 36.7; O2SAT 100
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
[2020-08-03 20:06] VITALS: BP 128/84; PULSE 94; RESP 18; TEMP 36.8; O2SAT 100
== END 2020-08-03 20:07 | disposition home or self-care (01) ==
PROVIDERS: Emergency Provider Emergency Medicine; PCP Internal Medicine
DX: O9A.212 Injury, poisoning and certain other consequences of external causes complicating pregnancy, second trimester (principal); Z3A.16 16 weeks gestation of pregnancy; S39.91XA Unspecified injury of abdomen, initial encounter; Z87.440 Personal history of urinary (tract) infections; Z87.891 Personal history of nicotine dependence; Y04.2XXA Assault by strike against or bumped into by another person, initial encounter
CPT/HCPCS: 99282

== ENCOUNTER 2020-09-24 15:28 | Emergency (ER) | payer OTHER, SELFPAY ==
[2020-09-24 15:58] VITALS: BP 98/61; PULSE 93; RESP 16; TEMP 37.1; O2SAT 100
[2020-09-24 16:12] VITALS: BP 98/61; PULSE 93; RESP 16; TEMP 37.1; O2SAT 100
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
== END 2020-09-24 16:26 | disposition home or self-care (01) ==
PROVIDERS: Emergency Provider Emergency Medicine; PCP Internal Medicine
DX: O99.512 Diseases of the respiratory system complicating pregnancy, second trimester (principal); Z3A.23 23 weeks gestation of pregnancy; J02.0 Streptococcal pharyngitis; Z20.822 Contact with and (suspected) exposure to COVID-19
CPT/HCPCS: 87426; 87880; 99213; C9803; G0463

== ENCOUNTER 2020-12-27 12:08 | Outpatient (CLI) | payer OTHER, SELFPAY ==
[2020-12-27 12:41] LABS: Hematocrit 31.9 % (37.0-47.0); Hemoglobin 10.2 g/dL (12.0-15.0); Mean Corpuscular Hemoglobin 30.4 pg (26-34); Mean Corpuscular Volume 94.9 fl (80-100); Mean Platelet Volume 10.8 fl (7.4-10.4); Platelet Count Result 186 k/mm3 (150-375); Red Blood Count 3.36 M/mm3 (4.2-5.4); Red Cell Distribution Width 13.4 % (11.5-14.5); White Blood Count 9.3 K/mm3 (4.5-10.0)
[2020-12-29 07:57] LABS: Rapid Plasma Reagin Non-Reactive (NonReactive)
== END 2020-12-27 12:09 | disposition home or self-care (01) ==
LOC: ANHLAB 12:11
PROVIDERS: PCP Internal Medicine; Visit Provider Obstetrics & Gynecology
DX: Z01.818 Encounter for other preprocedural examination (principal)
CPT/HCPCS: 36415; 85027; 86592; 86850; 86900; 86901

== ENCOUNTER 2020-12-29 05:21 | Inpatient (IN) | payer OTHER, SELFPAY ==
[2020-12-29] VITALS (59 sets, daily range): BP systolic 81–127; BP diastolic 61–92; PULSE 56–194; RESP 14–19; TEMP 35.7–36.8; O2SAT 96–100; BMI 20.6
--- NOTE | 2020-12-29 05:21 | LDADM ---
This patient, Galina Truong, was admitted to Labor/Delivery/Recovery 120 on 12/29/20 at 05:21. Plans for labor, pain management and were discussed with patient. Patient/family oriented to hospital policies and general routines including ID bracelet, bed and alarms, visiting hours, pain management, procedures, bathroom and other care routines, personal items, smoking policy, room service/diet and guest tray routines, security routines, and visiting hours. Patient/Family are encouraged to report perceived risks to care and to ask questions if they do not understand what they are told or what they should do. See OBIX for further documentation.
[2020-12-29] MEDS: LACTATED RINGERS 1,000 ML 125 ML IV CONT (05:43)
--- NOTE | 2020-12-29 06:32 | WPDANESEPPF ---
Anes - Initial Pre Proc Eval Procedure: Operation Date: 12/29/20 07:30 Proposed Procedures p Repeat Section with Bilateral Tubal Ligation - Lee Ramirez MD Date/Time: 12/29/20 06:32 Surgeon: Lee Ramirez MD Pre Op Diagnosis: Patient Data Age: 30 Gender: F Height: 1.63 m Weight: 54.5 kg Last Vital Signs Pulse 89 12/29/20 05:35 BP 121/80 12/29/20 05:35 Allergies Allergy/AdvReac Type Severity Reaction Status Date / Time hydrocodone AdvReac Unknown Nausea and Verified 08/03/20 19:17 Vomiting Home Medications Medication Instructions Recorded Confirmed Type PNV cmb#95-ferrous fumarate-FA 1 tablet PO DAILY 12/19/20 12/19/20 History [] cetirizine [Zyrtec] 10 mg PO DAILY 12/19/20 12/19/20 History Patient hx anesthesia problems: none Family hx anesthesia problems: none PMFSH Past Medical History Medical History (Updated 12/29/20 @ 07:21 by Lee Ramirez MD) Anxiety with depression Frequent UTI Left elbow fracture Skin lesion Surgical History Surgical History (Updated 12/29/20 @ 07:21 by Lee Ramirez MD) deliv NOS-unsp H/O elbow surgery 2018 H/O wrist surgery 2018 Family History Family History Father Diabetes mellitus Skin cancer Mother Hypertension Sibling Hypothyroidism Social History Social History Smoking status: Former smoker Alcohol intake: current Substance use: never Gender identity (if verbalized by the patient): Female Spiritual care concerns: No Anes - Eval Final PreProcedure Day of Procedure 12/29/20 06:32 Patient weight: normal Heart: regular rate and rhythm Lungs: clear to auscultation and normal air movement Airway: Mallampati scale class II Neurological: alert and oriented Last oral intake: >/= 8 hours ASA classification: II Emergent: no Anesthetic plan: proceed Anesthesia type and monitoring: regional spinal and standard monitoring Informed Consent: The patient's anesthetic plan and its attendant risks and benefits were discussed with the patient/family/POA. Questions were solicited and answers provided to the satisfaction of the patient/family/POA.
--- NOTE | 2020-12-29 07:19 | PM.IMHP ---
H&P: HPI History of Present Illness Date/Time: 12/29/20 07:19 This patient is a 30-year-old multiparous female at term with a previous delivery and unwanted fertility. We have agreed to perform repeat and bilateral tubal ligation. She understands that it is there risk of the procedure. She understands the details of the procedure. She understands that injuries may result in hospitalization, more surgery, severe illness. She denies nausea, vomiting, fever, chills. She denies any chest pain shortness of breath. Chief Complaint: Term , unwanted fertility Review of Systems Constitutional: Constitutional: Reports no additional constitutional complaints, Denies fatigue, Denies headache(s), Denies lethargy and Denies weakness Eyes: Eyes: Reports no additional eye complaints, Denies blurry vision and Denies photophobia ENT: Reports as per HPI, Denies headache(s) and Denies neck pain Cardiovascular: Cardiovascular: Denies chest pain, Denies diaphoresis, Denies leg edema, Denies palpitations and Denies dyspnea Respiratory: Respiratory: Denies hemoptysis, Denies dyspnea and Denies wheezing Gastrointestinal: Gastrointestinal: Denies abdominal pain, Denies melena, Denies bloating, Denies hematochezia, Denies nausea and Denies vomiting Genitourinary: Genitourinary: Reports no additional female genitourinary complaints Musculoskeletal: Musculoskeletal: Denies joint swelling, Denies neck pain, Denies numbness and Denies stiffness Neurologic: Denies Abnormal speech present, Denies confusion, Denies headache(s), Denies numbness and Denies weakness Psychiatric: Psychiatric: Denies anxiety, Denies confusion, Denies depression, Denies homicidal ideation and Denies suicidal ideation Endocrine: Endocrine: Denies fatigue and Denies palpitations Allergic/Immunologic: Allergic/Immunologic: Denies wheezing PMFSH Past Medical History Medical History (Updated 12/29/20 @ 07:21 by eLe Ramirez MD) Anxiety with depression Frequent UTI Left elbow fracture Skin lesion Surgical History Surgical History (Updated 12/29/20 @ 07:21 by Lee Ramirez MD) deliv NOS-unsp H/O elbow surgery 2018 H/O wrist surgery 2018 Family History Family History Father Diabetes mellitus Skin cancer Mother Hypertension Sibling Hypothyroidism Social History Social History Smoking status: Former smoker Alcohol intake: current Substance use: never Gender identity (if verbalized by the patient): Female Spiritual care concerns: No Meds Home Medications and Allergies Home Medications Medication Instructions Recorded Confirmed Type PNV cmb#95-ferrous fumarate-FA 1 tablet PO DAILY 12/19/20 12/19/20 History [] cetirizine [Zyrtec] 10 mg PO DAILY 12/19/20 12/19/20 History Allergies Allergy/AdvReac Type Severity Reaction Status Date / Time hydrocodone AdvReac Unknown Nausea and Verified 08/03/20 19:17 Vomiting Vital Signs Vital Signs - 24 hr 12/29/20 05:35 Pulse Rate 89 Blood Pressure 121/80 Exam Const: General: healthy appearing, comfortable and no acute distress; No confusion Orientation/consciousness: No confusion Eyes: Direct Ophthalmoscopy: No photophobia Resp: Auscultation: clear to auscultation bilaterally, no rales, no rhonchi and no wheezes Cardio: Rate: regular rate Heart sounds: no click, no murmurs and no rubs GI: Inspection: non-distended GI Palp: No abdominal tenderness Auscultation: normal bowel sounds Neuro: General: No confusion Speech: No Abnormal speech present Extrem: General: normal to inspection, no pedal edema and no calf tenderness Assessment and Plan Assessment and plan (1) Previous section: Code(s): Z98.891 - History of uterine scar from previous surgery Status: Acute (2) Unwanted fertility:
--- NOTE | 2020-12-29 07:21 | WPDHPUPDATE1 ---
History and Physical Update Update Date/Time: 12/29/20 07:22 History and Physical has been reviewed, including an updated exam of the patient. There are NO changes in the patient's condition. Risks, benefits, and alternatives have been discussed and questions answered. Patient agrees to proceed with procedure.
[2020-12-29] MEDS: KETOROLAC 30 MG/ML VIAL (*BKC) IV PUSH ×2 (07:49→16:15)
--- NOTE | 2020-12-29 08:29 | W.PM.PROC2 ---
Procedure Note - Detailed Date of Procedure 12/29/20 Pre-op Diagnosis previous . unwanted fertility, term Post-op Diagnosis same Procedure Performed Low-transverse section bilateral tubal ligation Surgeon Lee Ramirez MD Anesthesia spinal Findings Normal gestational maternal anatomy, average size , normal Apgars. Description of Procedure The patient was taken the operating room. She was prepped and draped in dorsal supine position with a leftward tilt. This was done after spinal anesthetic was applied. A low-transverse skin incision was made and carried down till of the fascia with the knife. The fascial incision was made with the knife. The fascial incision was extended laterally with Price scissors. The fascia was tented upward superiorly and inferiorly the rectus muscles were dissected off bluntly. The rectus muscles were the midline. The preperitoneal fat and peritoneum were dissected open bluntly at the superior aspect of the rectus muscles. The peritoneal incision was extended superior and inferior with good position of bladder. The uterine incision was made with a scalpel down to the level of the amniotic cavity. The amniotic cavity was entered bluntly. The infant was delivered. The cord was clamped and cut and the was handed off to waiting pediatric staff. Cord bloods were obtained. The placenta was removed manually. The uterus was exteriorized. The uterus was cleared of all clots, debris and membranes. The uterus was closed in 0 Vicryl running lock fashion. An imbricating over a was placed along the incision line as well. the right fallopian tube was grasped in the ampullary region with a Welches. The mesosalpinx was cauterized and a window was created in the same area adjacent to the tube. The proximal distal ends of the isolated were ligated with 0 Vicryl. The ligated segment was transected and. The cut ends of the tube were cauterized. The contralateral tube was ligated in the same fashion The uterus was returned to the abdomen. The gutters were cleared of all clots and debris. The fascia was closed with 0 Vicryl running fashion. The subcutaneous tissue was irrigated pinpoint bleeders were cauterized. The skin was closed with subcuticular 4 0 Monocryl. The skin incision line was covered with glue. The patient tolerated the procedure well. She has taken recovery room in stable condition. Sponge lap and needle counts were correct x2. Estimated Blood Loss 250 Complications No immediate complications Condition stable Disposition PACU
[2020-12-29] MEDS: OXYTOCIN 30 UNITS/NS 500 ML 30 UNITS/500 ML BAG 125 UNITS IV CONT (08:51)
--- NOTE | 2020-12-29 10:29 | PC.NURSE ---
Patient transferred to post room # 292 per stretcher. Support person present. Oriented to unit, room, information board, rooming in, admission packet and security measures. Patient verbalizes understanding.
[2020-12-29] MEDS: DEXTROSE 5%/0.45% SOD CHL 1,000 ML 125 ML IV CONT (12:08)
[2020-12-29] MEDS: MORPHINE SULFATE (*CRX) 4 MG/ML INJ IV PUSH ×2 (12:09→13:41)
--- NOTE | 2020-12-29 12:10 | PC.NURSE ---
Breast pump provided due to in Level II. Instructions given on breast pump care and usage, pumping schedule, nipple care, and collection and storage of breast milk. Encouraged [id number], breast massage and manual expression to stimulate supply. Assessed patient for correct flange size, placement and draw. Patient verbalizes and demonstrates understanding of instructions.
[2020-12-29] MEDS: SIMETHICONE 80 MG TAB.CHEW PO (16:16)
[2020-12-29] MEDS: oxyCODONE/ACETAMINOPHEN (*CRX) 5-325 MG TABLET 2 TABLET PO (19:57)
[2020-12-30] MEDS: oxyCODONE/ACETAMINOPHEN (*CRX) 5-325 MG TABLET 2 TABLET PO ×4 (03:59→22:16)
[2020-12-30 04:00] VITALS: BP 89/63; PULSE 109; RESP 16; TEMP 36.6; O2SAT 97
[2020-12-30 05:46] LABS: Basophils Percent Auto 0.2 % (0.2-1.2); Eosinophils Absolute Auto 0.1 K/mm3 (0-0.3); Eosinophils Percent Auto 0.3 % (0-4.4); Hematocrit 32.2 % (37.0-47.0); Hemoglobin 10.4 g/dL (12.0-15.0); Immature Granulocyte Absolute 0.11 K/mm3 (0.00-0.031); Immature Granulocyte Percent A 0.6 % (0-0.5); Lymphocytes Absolute Auto 1.67 K/mm3 (0.9-3.2); Lymphocytes Percent Auto 9.4 % (18.3-44.2); Mean Corpuscular HGB Conc 32.3 g/dl (32-36); Mean Corpuscular Hemoglobin 30.6 pg (26-34); Mean Corpuscular Volume 94.7 fl (80-100); Monocytes Absolute Auto 0.8 K/mm3 (0.1-0.6); Monocytes Percent Auto 4.5 % (2.6-8.5); Neutrophils Absolute Auto 15.1 K/mm3 (1.3-6.7); Platelet Count Result 186 k/mm3 (150-375); Red Cell Distribution Width 13.1 % (11.5-14.5); White Blood Count 17.7 K/mm3 (4.5-10.0)
--- NOTE | 2020-12-30 07:45 | PC.NURSE ---
Primary RN called for pt assessment due to pain with pumping. Mother is using her Spectra pump with 24mm flanges, redness is noted with pain to areola. Suggested mother return to using hospital pump to use the 27mm flanges. Reviewed breast pump care and usage, pumping schedule, nipple care, and collection and storage of breast milk. Encouraged [id number], breast massage and manual expression to stimulate supply. Assessed patient for correct flange size, placement and draw. Patient verbalizes and demonstrates understanding of instructions.
--- NOTE | 2020-12-30 07:59 | WPDANLDNPN2 ---
Anes-Prog Note L&D-Neuraxial Date/Time: 12/30/20 07:59 Neuraxial medications: intrathecal PF morphine Opiod-related complaints: none Patient feedback: Patient satisfied with post-operative pain management.
--- NOTE | 2020-12-30 07:59 | WPDANLDPN2 ---
Anes-Prog Note L&D Date/Time: 12/30/20 07:59 Comfortable throughout: section Neuraxial method: spinal Epidural/Spinal procedure site: clean & non-tender Neuro status: Neuro function grossly intact. Cardiovascular status: normal Respiratory status: normal Airway patency: baseline Mental status: baseline Post-Op hydration status: normal Vital Signs: Last Vital Signs Temp 36.6 C 12/30/20 04:00 Pulse 109 H 12/30/20 04:00 Resp 16 12/30/20 04:00 BP 89/63 L 12/30/20 04:00 Pulse Ox 97 12/30/20 04:00 Pain score (VAS): 0 I/O: Intake & Output 12/29/20 12/29/20 12/30/20 15:59 23:59 07:59 Intake Total 1400 900 Output Total 650 2100 Balance 750 -1200 Post-procedural complaints: none Patient feedback: Patient satisfied with anesthetic care.
[2020-12-30 08:00] VITALS: BP 98/70; PULSE 93; RESP 18; TEMP 36.4; O2SAT 99
[2020-12-30] MEDS: DOCUSATE SODIUM 100 MG CAPSULE PO ×3 (09:30→16:17)
[2020-12-30] MEDS: SIMETHICONE 80 MG TAB.CHEW PO (09:47)
[2020-12-30] MEDS: IBUPROFEN SUSPENSION 200 MG/10 ML UDC 600 MG PO ×2 (10:32→16:17)
--- NOTE | 2020-12-30 12:00 | PC.NURSE ---
Mother called out for assist with feeding, reporting has been sleepy and not maintaining latch. Mother has been pumping and offered EBM as last feeding. Reviewed is 37 weeks and may have challenges with sleepiness, maintaining latch, tone and suck swallow. Mother needs to wake to feed by three hours and assist with maintaining deep latch and keeping awake and nursing effectively. is able to freely thrust tongue past gum ridge. Skin is intact on both nipples, no redness and bruising noted. Reviewed infant feeding cues, frequencies, duration of feedings, feeding elimination flow sheet, and signs of adequate intake. Demonstrated stimulation techniques to wake for feeding. Assisted with to breast. Reviewed positioning/alignment in cross cradle, holding breast in ?U? hold and guided asymmetrical latch on. Infant able to latch correctly. Infant nursed weakly for a few short bursts with occasional swallowing noted. Reviewed signs of a correct latch, effective nursing and suck swallow ratio. Discussed should have limited durations at attempts, then move forward with supplementation. Mother would like to use the SNS feeder with formula. SNS reviewed on set up and placement. 60mls of formula to SNS. was able to latch with weak suckling noted, SNS tube glided in to upper palate. A slight increase in suckling noted with 15 minutes of attempt. Volume to 55mls. Advised mother should be supplemented by nipple of 15-20 mls each feeding. Discussed effective vs ineffective feeding, advised at this time is not effectively transferring colostrum at this time. Attempt and assist 55 minutes.
--- NOTE | 2020-12-30 15:30 | PC.NURSE ---
Upon entering mother has to breast, infant is latched in cradle. has a few bursts of effective suckling with occasional swallowing noted, followed with long pausing/sleeping. Mother will stimulate to wake, infant responds with repeated short bursts of suckling. Discussed supplementation following feeding, mother does not wish to supplement each feeding. Feeding report to primary RN.
[2020-12-30 19:40] VITALS: BP 105/75; PULSE 98; RESP 18; TEMP 36.7; O2SAT 99
[2020-12-31] MEDS: IBUPROFEN SUSPENSION 200 MG/10 ML UDC 600 MG PO ×2 (01:18→08:51)
[2020-12-31] MEDS: oxyCODONE/ACETAMINOPHEN (*CRX) 5-325 MG TABLET 2 TABLET PO ×2 (05:29→13:15)
[2020-12-31 07:25] VITALS: BP 111/76; PULSE 88; RESP 16; TEMP 37.3; O2SAT 100
--- NOTE | 2020-12-31 08:00 | PC.NURSE ---
Patient was given the opportunity to view the discharge video Mother & Baby Care, The First Two Weeks and to ask questions. Patient declined viewing the video and has been given the mother/baby guide for home reference.
--- NOTE | 2020-12-31 08:32 | PM.OBPNVD ---
OB - PN: Subj Subjective Date/time seen: 12/31/20 08:32 Patient comments: no complaints, pain well controlled, incisional pain, tolerating diet and flatus present OB - PN: Obj Data Labs CBC & Chem 7: 12/30/20 04:13 OB - PN A/P Plan day: 2 Plan: routine care Comments: POD#2 LTCS - no problems, Time Spent With Patient Time: Total time spent is greater than 50% in coordination of care (as documented) at patient's floor/unit and/or counseling patient: Exam Const: General: comfortable, no acute distress and alert Resp: Effort & Inspection: normal respiratory effort Auscultation: no crackles, no rales and no rhonchi Cardio: Rate: regular rate Heart sounds: no click, no murmurs and no rubs GI: Inspection: non-distended GI Palp: No Tenderness to palpation present (GI) Auscultation: normal bowel sounds Other: Incision - CDI Extrem: General: normal to inspection, no pedal edema and no calf tenderness
[2020-12-31] MEDS: SIMETHICONE 80 MG TAB.CHEW PO ×2 (08:45→13:15)
--- NOTE | 2020-12-31 10:49 | PC.NURSE ---
Self care and infant care discharge instructions given including follow up visit date and time. Mother verbalized understanding. No questions or concerns voiced. Very pleasant and cooperative. at side.
[2020-12-31] MEDS: TETANUS,DIPHTHERIA,AC PERTUSSIS ADULT (0.5 ML) BOOSTRIX IM (11:44)
[2021-01-02 11:39] VITALS: BP 103/74; PULSE 94; RESP 20; TEMP 37.1; O2SAT 99
--- NOTE | 2021-01-26 08:04 | PM.OBDSVD ---
DS: Admitting Diagnosis Admitting Diagnosis term DS: Discharge Diagnosis Discharge Diagnosis (1) Previous section: Code(s): Z98.891 - History of uterine scar from previous surgery Status: Acute OB - DS: Summary OB Procedures : None OB Procedures Intrapartum: OB Procedures: : None Peripartum Data Procedures: Procedures Operation Date: 12/29/20 07:30 Actual Procedure Side Surgeon p Repeat Section with Bilateral Tubal Ligation Lee Ramirez MD Time Spent with Patient Time attestation: Total time spent providing and/or coordinating discharge services: DS: Data Data Completed and Pending Completed studies during hospitalization: Pending at discharge 12/29/20 08:00 Surgical [PTH] Routine Discharge Plan Discharge Attending physician on discharge: Lee Ramirez Consulting providers: Jim Bruner Discharging Clinician: Lee Ramirez Anticipated Discharge Date/Time: 12/31/20 10:00 Patient Disposition: Home, Self-Care Activity: may shower, may drive after 2 weeks and pelvic rest Diet: regular Wound Care Instructions: incision open to air Discharge Instructions: Education: Mom and Baby Guide Given to: Mother Follow-Up: Call your delivering provider's office for an appointment to be seen in: 4 Weeks Mom and baby should come to the [facility] for the follow-up appointment. Appointment Date/Time:Saturday, January 02, 2021 at 11:00 am What to expect at your follow-up visit: Blood Pressure Check Physical Assessment Call [phone] if you are unable to keep your appointment time. BREAST CARE: * Wear a snug supportive bra. * For engorgement discomfort: Breast Feeding: * Apply warm moist washcloths * Express milk as needed to relieve engorgement * Wear loose clothing * For sore nipples: * Identify correct latch-on * Apply warm moist washcloths before and after nursing * Air dry nipples after nursing * May apply Lansinoh cream to nipples ABDOMINAL INCISION: (if applicable) * Allow incision to air dry * Do NOT use lotions for powders on your incision * When showering, allow soap and water to run over the incision, but do not wash incision EPISIOTOMY/PERINEAL CARE: * Until bleeding stops, use your karyna bottle after urinating * Change your pad frequently throughout the day * You may take sitz baths several times a day (fill your bathtub with warm water and soak for 20 minutes.) Do NOT bathe in the water * No tub baths until seen by your physician - You may shower ACTIVITY: * Rest as much as possible. * Do not exercise or lift anything heavier than your baby (such as laundry or other children.) * Avoid stairs or driving as much as possible. * Do not put anything into the vagina. No douching, tampons, or sexual activity until seen by physician. NOTIFY PHYSICIAN IF YOU HAVE ANY QUESTIONS OR IF ANY OF THE FOLLOWING SYMPTOMS OCCUR: * If your incision becomes red, swollen, or more painful than what you have experienced in the hospital. * If your vaginal bleeding becomes foul smelling. * If your vaginal bleeding becomes more heavy than a period or if your bleeding changes from pink to bright red. However, you may pass an occasional walnut-sized clot once or twice for the first week . * If you experience a sharp, shooting pain in you calves. * If you discover a hard, reddened area on your breast or if you experience flu-like symptoms. DIET: * Eat regular, well-balanced meals. * Drink plenty of fluids daily. If , drink to thirst. Patient Instructions: Antibiotic Form Stand Alone Forms: General Discharge Information Follow-up/Referrals: Lee Ramirez MD [Physician] - 1 Week Discharge Medications: New ibuprofen 100 mg/5 mL Suspension 600 mg PO Q6H PRN (Reason: Cr
== END 2020-12-31 13:30 | disposition home or self-care (01) | DRG 540 ==
LOC: ANHLDR 05:32 → ANHOB2 10:35
PROVIDERS: Admitting Provider Obstetrics & Gynecology; PCP Internal Medicine; Visit Provider Obstetrics & Gynecology
PROC: 10D00Z1 Extraction of Products of Conception, Low, Open Approach (ICD-10-PCS; CPT 59514; principal; 2020-12-29 07:30)
DX: O34.211 Maternal care for low transverse scar from previous cesarean delivery (principal); Z30.2 Encounter for sterilization; O69.81X0 Labor and delivery complicated by cord around neck, without compression, not applicable or unspecified; Z3A.37 37 weeks gestation of pregnancy; Z37.0 Single live birth; Z87.891 Personal history of nicotine dependence
CPT/HCPCS: 36415; 85025; 88302; 90715; A9270; J1885; J2270; J2274; J2405; J2590; J7120

== ENCOUNTER 2021-02-03 20:13 | Emergency (ER) | payer OTHER, SELFPAY ==
--- NOTE | ~2021-02-03 | CT_ITS ---
EXAMINATION: CT abdomen pelvis w con DATE: 02/04/2021 00:43 INDICATION: Right lower quadrant pain. performed on 12/29/2020. TECHNIQUE: Computed tomography (CT) of the abdomen and pelvis was performed with 100 cc Omnipaque 350 intravenous contrast. The dose-length product was 167.82 mGy-cm. Automated exposure control and iter ative reconstruction technique were employed. COMPARISON: CT dated 04/03/2020. FINDINGS: Lung bases are unremarkable. Heart size normal. No significant pleural or pericardial effus ion. No significant vascular abnormality. No lymphadenopathy. There is transverse subcutaneous fatty infiltration, consistent with recent section. There is a small involuting corpus luteal cyst on the right measuring 1.3 cm. Small amount of free fluid in the pelvis, likely physiologic. The liver contains small subcentimeter hypodensities, likely benign cysts. The spleen, pancreas, adre nal glands and kidneys are unremarkable. There is a small left Bartholin cyst measuring 8 mm. Nonobst ructive bowel gas pattern. IMPRESSION: 1. No acute abdominal abnormality. Reviewed, dictated and finalized at location A.
[2021-02-03 20:26] VITALS: BP 101/67; PULSE 80; RESP 17; TEMP 36.4; O2SAT 99
[2021-02-03 20:57] LABS: Basophils Percent Auto 0.4 % (0.2-1.2); Eosinophils Absolute Auto 0.1 K/mm3 (0-0.3); Eosinophils Percent Auto 2.1 % (0-4.4); Immature Granulocyte Absolute 0.01 K/mm3 (0.00-0.031); Immature Granulocyte Percent A 0.1 % (0-0.5); Lymphocytes Percent Auto 35.2 % (18.3-44.2); Mean Corpuscular HGB Conc 31.4 g/dl (32-36); Mean Corpuscular Hemoglobin 29.2 pg (26-34); Mean Corpuscular Volume 92.8 fl (80-100); Mean Platelet Volume 9.6 fl (7.4-10.4); Monocytes Absolute Auto 0.6 K/mm3 (0.1-0.6); Monocytes Percent Auto 8.1 % (2.6-8.5); Neutrophils Absolute Auto 3.7 K/mm3 (1.3-6.7); Neutrophils Percent Auto 54.1 % (45.5-73.1); Platelet Count Result 250 k/mm3 (150-375); Red Blood Count 3.77 M/mm3 (4.2-5.4); Red Cell Distribution Width 13.7 % (11.5-14.5); White Blood Count 6.8 K/mm3 (4.5-10.0)
[2021-02-03 21:02] LABS: Add Urine Microscopic? YES; Alanine Aminotransferase 12 U/L (4-35); Albumin Level 4.3 g/dL (3.5-5.1); Alkaline Phosphatase 85 U/L (38-126); Anion Gap 8 mmol/L (8-16); Appearance Urine Clear (Clear); Aspartate Amino Transferase 22 U/L (14-36); Bilirubin Urine Negative (Negative); Bilirubin,Total 0.6 mg/dL (0.2-1.3); Blood Urea Nitrogen 21 mg/dL (7-17); Blood Urine 1+ (Negative); Calcium 9.4 mg/dL (8.4-10.2); Carbon Dioxide 24 mmol/L (22-30); Chloride 107 mmol/L (98-107); Color Urine Yellow (Yellow); Estimated CRCL calculation 67 ml/min; Estimated Glomerular Filt Rate > 60; Glucose 92 mg/dL (65-110); Glucose Urine UA Negative (Negative); Ketones Urine Negative (Negative); Leukocyte Esterase Ur Trace LEU/UL (Negative); Lipase 86 U/L (23-300); Mucus Urine Rare /lpf; Nitrate Urine Negative (Negative); Potassium 3.9 mmol/L (3.4-5.0); Protein Urine Negative (Negative); RBC Urine 0-2 /hpf (0-2); Sodium 139 mmol/L (137-145); Squamous Epithelial Cell Urine Many /hpf (Few); Urobilinogen Urine Negative mg/dL (<2.0); WBC Urine 0-3 /hpf
[2021-02-03 22:31] VITALS: BP 96/64; PULSE 90; RESP 18; TEMP 37.1; O2SAT 100
[2021-02-04 00:05] VITALS: BP 126/86; PULSE 66; RESP 18; O2SAT 100
[2021-02-04 00:22] VITALS: BP 105/78; PULSE 64; RESP 18; O2SAT 100
[2021-02-04] MEDS: ONDANSETRON INJ 4 MG/2 ML VIAL IV PUSH (01:19)
[2021-02-04] MEDS: MORPHINE SULFATE (*CRX) 4 MG/ML INJ IV PUSH (01:20)
[2021-02-04 01:22] VITALS: BP 111/79; PULSE 66; RESP 17; O2SAT 100
--- NOTE | 2021-02-04 01:36 | ED.GENADULT ---
HPI - General Adult General Chief complaint: Abdominal Pain Stated complaint: right flank pain Time Seen by Provider: 02/04/21 00:00 History of Present Illness HPI narrative: Patient is a 30-year-old female who presents ER with right lower quadrant abdominal pain. Reports pain began yesterday and was around her umbilicus. Since moved down into the right lower quadrant. It is worse with movement. No vaginal bleeding or discharge. No recent fevers or chills or sweats. Has found no relief with medication at home. Has follow-up with her cpr instructor tomorrow. Patient had a performed 7 weeks ago. She reports very scant drainage from the right side of the incision that occurred recently. No surrounding cellulitis. Patient does have history of ovarian cyst. She still has her appendix as well. Related Data Home Medications Medication Instructions Recorded Confirmed PNV cmb#95-ferrous fumarate-FA 1 tablet PO DAILY 12/19/20 12/19/20 [] cetirizine [Zyrtec] 10 mg PO DAILY 12/19/20 12/19/20 Allergies Allergy/AdvReac Type Severity Reaction Status Date / Time hydrocodone AdvReac Unknown Nausea and Verified 08/03/20 19:17 Vomiting Review of Systems Review of Systems: All systems reviewed & are unremarkable except as noted in HPI and below Constitutional: Constitutional: Denies chills, Denies fever(s) and Denies weakness ENT: Denies nasal congestion Gastrointestinal: Gastrointestinal: Reports abdominal pain, Denies diarrhea, Denies nausea and Denies vomiting Genitourinary: Genitourinary: Denies abnormal vaginal bleeding, Denies hematuria, Denies nocturia, Denies dysuria, Denies flank pain and Denies vaginal discharge [facility] Past Medical History Medical History (Updated 02/04/21 @ 01:54 by Oscar Montez MD) Anxiety with depression Frequent UTI Left elbow fracture Skin lesion Surgical History Surgical History (Updated 12/29/20 @ 07:21 by Lee Ramirez MD) deliv NOS-unsp H/O elbow surgery 2018 H/O wrist surgery 2018 Family History Family History Father Diabetes mellitus Skin cancer Mother Hypertension Sibling Hypothyroidism Social History Social History Smoking status: Former smoker Alcohol intake: current Substance use: never Gender identity (if verbalized by the patient): Female Spiritual care concerns: No Exam Narrative: GENERAL: Well-appearing, well-nourished, and in no acute distress. HEAD: Normocephalic, atraumatic. ENT: Mucous membranes moist. CHEST: Clear to auscultation. No respiratory distress. HEART: Regular rate and rhythm. Normal peripheral pulses. ABDOMEN: Soft, palpation right lower quadrant without guarding or rebound, nondistended. Well-healing surgical incision without evidence of cellulitis or discernible abscess. EXTREMITIES: Normal range of motion. No edema. SKIN: Warm, dry, no rash. NEURO: Alert and oriented x3. PSYCH: Normal mood and affect. Course Course Emergency Course: Pain decreased with morphine. Discussed CT findings. Has follow-up with her cpr instructor tomorrow. Vital Signs Vital signs: Vital Signs Temperature 97.6 F 02/03/21 20:26 Pulse Rate 80 02/03/21 20:26 Respiratory Rate 17 02/03/21 20:26 Blood Pressure 101/67 02/03/21 20:26 Pulse Oximetry 99 02/03/21 20:26 Temperature 98.7 F 02/03/21 22:31 Pulse Rate 66 02/04/21 01:22 Respiratory Rate 17 02/04/21 01:22 Blood Pressure 111/79 02/04/21 01:22 Pulse Oximetry 100 02/04/21 01:22 Medical Decision Making Vital Signs Vital Signs: Vital Signs Temperature 97.6 F 02/03/21 20:26 Pulse Rate 80 02/03/21 20:26 Respiratory Rate 02/03/21 20:26 Blood Pressure 101/67 02/03/21 20:26 Pulse Oximetry 99 02/03/21 20:26 Temperature 98.7 F 02/03/21 22:31 Pulse Rate 66 02/04/21 01:22 Respir
== END 2021-02-04 01:22 | disposition home or self-care (01) ==
PROVIDERS: Emergency Provider Emergency Medicine; PCP Internal Medicine
DX: N83.8 Other noninflammatory disorders of ovary, fallopian tube and broad ligament (principal); F41.9 Anxiety disorder, unspecified; F32.9 Major depressive disorder, single episode, unspecified
CPT/HCPCS: 36415; 74177; 80053; 81001; 81025; 83690; 85025; 96374; 96375; 99284; J2270; J2405; J2704; Q9967

== ENCOUNTER 2021-05-12 15:42 | Emergency (ER) | payer OTHER, SELFPAY ==
--- NOTE | 2021-05-12 16:01 | ED.GENADULT ---
HPI - General Adult General Chief complaint: Wound/Laceration Stated complaint: Cut on Tongue Time Seen by Provider: 05/12/21 16:50 Source: patient and RN notes reviewed Mode of arrival: ambulatory Limitations: no limitations History of Present Illness HPI narrative: 30-year-old female presents concern for painful sore on her tongue. Reports 2 weeks ago she bit her tongue and since then the area has become more painful, larger. Reports she is tried [id number] remedies without relief. Reports it surrounded by redness, swelling. MD complaint: Oral problem Location: mouth Related Data Home Medications Medication Instructions Recorded Confirmed cetirizine [Zyrtec] 10 mg PO DAILY 12/19/20 04/17/21 Allergies Allergy/AdvReac Type Severity Reaction Status Date / Time hydrocodone AdvReac Unknown Nausea and Verified 08/03/20 19:17 Vomiting Review of Systems Review of Systems: CONSTITUTIONAL: Denies malaise, chills, sweats, or fever. ENT: Reports painful swollen tongue lesion SKIN: Denies rash or itching. MUSCULOSKELETAL: Denies myalgia. All systems reviewed & are unremarkable except as noted in HPI and below PMFSH Past Medical History Medical History Anxiety with depression Frequent UTI Left elbow fracture Post depression Skin lesion Surgical History Surgical History deliv NOS-unsp H/O elbow surgery 2018 H/O wrist surgery 2018 Family History Family History Father Diabetes mellitus Skin cancer Mother Hypertension Sibling Hypothyroidism Social History Social History Smoking status: Former smoker Alcohol intake: current Substance use: never Gender identity (if verbalized by the patient): Female Spiritual care concerns: No Comments At time of signature, agree with nursing past medical, surgical, social and family history. There is no relevant family history pertinent to the presenting complaint Exam Narrative: GENERAL: Well-appearing, well-nourished, and in no acute distress. HEAD: Normocephalic, atraumatic. EYES: PERRLA, sclera clear ENT: Nares clear. Mucous membranes moist. 0.5 cm ulceration under the tip of the tongue with surrounding erythema, edema approximately 1 cm diameter, no other oral lesions noted tonsils not enlarged and without exudate. NECK: Supple. CHEST: No respiratory distress. Speaks in full sentences. HEART: Regular rate and rhythm. SKIN: Warm, dry, no visible rash. NEURO: Alert and oriented x3. PSYCH: Normal mood and affect Course Course Emergency Course: Patient is aware of diagnosis, understands and agrees to treatment plan. Anticipatory guidance given. Patient agrees to follow-up as directed and is aware of reasons to seek care at the emergency department. Portions of this record may have been created with voice recognition software Vital Signs Vital signs: Vital Signs Temperature 98.6 F 05/12/21 16:04 Pulse Rate 77 05/12/21 16:04 Respiratory Rate 18 05/12/21 16:04 Blood Pressure 99/66 L 05/12/21 16:04 Pulse Oximetry 99 05/12/21 16:04 Temperature 98.6 F 05/12/21 16:04 Pulse Rate 77 05/12/21 16:04 Respiratory Rate 18 05/12/21 16:04 Blood Pressure 99/66 L 05/12/21 16:04 Pulse Oximetry 99 05/12/21 16:04 Reviewed. Medical Decision Making MDM Narrative Medical decision making narrative: Exam findings show no acute concerns or changes; patient is non-toxic appearing and is in no distress. Patient is appropriate for outpatient treatment and follow-up. Vital Signs Vital Signs: Vital Signs Temperature 98.6 F 05/12/21 16:04 Pulse Rate 77 05/12/21 16:04 Respiratory Rate 18 05/12/21 16:04 Blood Pressure 99/66 L 05/12/21 16:04 Pulse Oximetry 99 05/12/21 16:0
[2021-05-12 16:04] VITALS: BP 99/66; PULSE 77; RESP 18; TEMP 37; O2SAT 99
== END 2021-05-12 17:20 | disposition home or self-care (01) ==
PROVIDERS: Emergency Provider Nurse Practitioner; PCP Internal Medicine
DX: K13.70 Unspecified lesions of oral mucosa (principal); Z87.891 Personal history of nicotine dependence
CPT/HCPCS: 99213; G0463

== ENCOUNTER → 2021-06-17 02:37 | Outpatient (CLI) | payer OTHER, SELFPAY ==
[2021-06-18 02:21] LABS: SARS-CoV-2 RNA PCR Negative
== END ==
PROVIDERS: PCP Internal Medicine; Visit Provider Internal Medicine
DX: Z20.822 Contact with and (suspected) exposure to COVID-19 (principal)
CPT/HCPCS: C9803; U0003; U0005

== ENCOUNTER 2021-07-13 08:26 | Emergency (ER) | payer OTHER, SELFPAY ==
--- NOTE | 2021-07-13 08:27 | ED.URI ---
HPI - URI/Sore Throat General Chief Complaint: Upper Respiratory Infection Stated Complaint: Cough,Runny Nose Source: patient, family, RN notes reviewed and old records reviewed Mode of arrival: ambulatory Limitations: no limitations History of Present Illness HPI Narrative: 31-year-old female presents to the [facility] with multiple complaints that started , 4 days ago. States on she started with stomach aches. None today, none since . Tuesday she had body aches along with nausea, vomiting and diarrhea along with a runny nose, right ear pain and cough. States over the weekend she started feeling better. Has taken ibuprofen but no other treatment prior to arrival. Patient states that she still feels fatigued and body aches. States that she has been tested several times for Covid, declined test today. MD elicited complaint: cough and rhinorrhea Related Data Allergies Allergy/AdvReac Type Severity Reaction Status Date / Time hydrocodone AdvReac Unknown Nausea and Verified 07/13/21 08:58 Vomiting Review of Systems Review of Systems: All systems reviewed & are unremarkable except as noted in HPI and below Constitutional: Constitutional: Reports as per HPI, Denies chills, Reports fatigue, Denies fever(s) and Denies headache(s) Eyes: Eyes: Reports no additional eye complaints ENT: Reports as per HPI, Denies vertigo, Denies dizziness, Denies headache(s), Denies nasal congestion and Denies sore throat Comments: Right ear Cardiovascular: Cardiovascular: Reports no additional cardiovascular complaints, Denies chest pain, Denies syncope, Denies rapid heart rate, Denies radiating jaw, neck or arm pain and Denies dyspnea Respiratory: Respiratory: Reports as per HPI, Reports cough, Denies dyspnea and Denies wheezing Gastrointestinal: Gastrointestinal: Reports as per HPI, Reports abdominal pain (Last , 4 days ago), Reports diarrhea, Reports nausea and Reports vomiting Genitourinary: Genitourinary: Reports no additional female genitourinary complaints Musculoskeletal: Musculoskeletal: Reports as per HPI, Denies back pain, Reports myalgias, Denies muscle cramps and Denies numbness Integumentary/Breasts: Skin/Breast: Reports system reviewed and no additional complaints, except as docu Neurologic: Reports system reviewed and no additional complaints, except as documented, Denies vertigo, Denies dizziness, Denies syncope, Denies headache(s), Denies focal weakness and Denies numbness Psychiatric: Psychiatric: Reports no additional psychiatric complaints Allergic/Immunologic: Allergic/Immunologic: Reports no additional allergic/immunologic complaints and Denies wheezing PMFSH Past Medical History Medical History Anxiety with depression Frequent UTI Left elbow fracture Post depression Skin lesion Surgical History Surgical History deliv NOS-unsp H/O elbow surgery 2018 H/O wrist surgery 2018 Family History Family History Father Diabetes mellitus Skin cancer Mother Hypertension Sibling Hypothyroidism Social History Social History Smoking status: Former smoker Alcohol intake: current Substance use: never Gender identity (if verbalized by the patient): Female Spiritual care concerns: No Comments At the time of my signature, I reviewed and agree with the nursing past medical, surgical, social, and family history. There is no relevant family history pertinent to the patient complaint. Exam Const: General: cooperative, healthy appearing, no acute distress, well developed, alert and awake; No acute distress or ill appearing Nutritional Appearance: well nourished Orientation/consciousness: patient oriented x3 Limitations: no limitations HENMT: Head: normal to inspect
[2021-07-13 08:44] VITALS: BP 104/71; PULSE 78; RESP 16; TEMP 37.2; O2SAT 99
== END 2021-07-13 09:10 | disposition home or self-care (01) ==
PROVIDERS: Emergency Provider Nurse Practitioner; PCP Internal Medicine
DX: B34.9 Viral infection, unspecified (principal); Z87.891 Personal history of nicotine dependence
CPT/HCPCS: 99213; G0463

== ENCOUNTER 2021-07-24 13:27 | Outpatient (CLI) | payer OTHER, SELFPAY ==
[2021-07-24 13:49] LABS: Basophils Absolute Auto 0.1 K/mm3 (0.0-0.1); Basophils Percent Auto 0.8 % (0.2-1.2); Eosinophils Absolute Auto 0.1 K/mm3 (0-0.3); Eosinophils Percent Auto 1.1 % (0-4.4); Hematocrit 34.3 % (37.0-47.0); Immature Granulocyte Absolute 0.03 K/mm3 (0.00-0.031); Immature Granulocyte Percent A 0.4 % (0-0.5); Lymphocytes Absolute Auto 2.39 K/mm3 (0.9-3.2); Mean Corpuscular HGB Conc 32.1 g/dl (32-36); Mean Corpuscular Hemoglobin 27.5 pg (26-34); Mean Corpuscular Volume 85.8 fl (80-100); Mean Platelet Volume 9.8 fl (7.4-10.4); Monocytes Absolute Auto 0.6 K/mm3 (0.1-0.6); Monocytes Percent Auto 7.2 % (2.6-8.5); Neutrophils Absolute Auto 4.8 K/mm3 (1.3-6.7); Neutrophils Percent Auto 60.5 % (45.5-73.1); Platelet Count Result 254 k/mm3 (150-375); Red Cell Distribution Width 16.2 % (11.5-14.5)
[2021-07-24 14:00] LABS: Alanine Aminotransferase 14 U/L (4-35); Albumin Level 4.5 g/dL (3.5-5.1); Alkaline Phosphatase 56 U/L (38-126); Anion Gap 8 mmol/L (8-16); Aspartate Amino Transferase 23 U/L (14-36); Bilirubin,Total 0.6 mg/dL (0.2-1.3); Blood Urea Nitrogen 17 mg/dL (7-17); Calcium 8.8 mg/dL (8.4-10.2); Carbon Dioxide 24 mmol/L (22-30); Chloride 105 mmol/L (98-107); Cholesterol 155 mg/dL (0-200); Estimated Glomerular Filt Rate > 60; Glucose 73 mg/dL (65-110); HDL Direct 52 mg/dL; Potassium 3.6 mmol/L (3.4-5.0); Sodium 137 mmol/L (137-145); Triglycerides 102 mg/dL (<150)
[2021-07-24 14:10] LABS: LDL Cholesterol Direct 75 mg/dL
[2021-07-30 09:40] LABS: Gliadin AB, IgG <1.0 U/mL (<15.0); Reticulin IgA Negative (Negative); TTG IGA AB <1.0 U/mL (<15.0)
== END 2021-07-24 13:28 | disposition home or self-care (01) ==
LOC: ANHLAB 13:29
PROVIDERS: PCP Internal Medicine; Visit Provider Nurse Practitioner
DX: R14.0 Abdominal distension (gaseous) (principal); Z13.220 Encounter for screening for lipoid disorders
CPT/HCPCS: 36415; 80053; 80061; 83516; 85025; 86255

== ENCOUNTER 2021-07-30 10:04 | Outpatient (CLI) | payer OTHER, SELFPAY ==
[2021-07-30 11:25] LABS: Iron 31 ug/dL (37-170)
[2021-07-30 11:34] LABS: Percent Iron Saturation 9 % (20-50)
[2021-07-30 12:01] LABS: Ferritin 6.74 ng/mL (6.24-137)
== END 2021-07-30 10:05 | disposition home or self-care (01) ==
LOC: ANHLAB 10:06
PROVIDERS: PCP Internal Medicine; Visit Provider Nurse Practitioner
DX: D64.9 Anemia, unspecified (principal)
CPT/HCPCS: 36415; 82728; 83540; 83550

== ENCOUNTER 2021-09-21 12:17 | Outpatient (CLI) | payer OTHER, SELFPAY ==
[2021-09-21 13:02] LABS: Basophils Percent Auto 0.6 % (0.2-1.2); Eosinophils Absolute Auto 0.1 K/mm3 (0-0.3); Eosinophils Percent Auto 1.7 % (0-4.4); Hematocrit 35.4 % (37.0-47.0); Hemoglobin 11.9 g/dL (12.0-15.0); Immature Granulocyte Absolute 0.01 K/mm3 (0.00-0.031); Immature Granulocyte Percent A 0.2 % (0-0.5); Lymphocytes Absolute Auto 2.14 K/mm3 (0.9-3.2); Lymphocytes Percent Auto 39.6 % (18.3-44.2); Mean Corpuscular HGB Conc 33.6 g/dl (32-36); Mean Corpuscular Hemoglobin 30.5 pg (26-34); Mean Corpuscular Volume 90.8 fl (80-100); Mean Platelet Volume 10.3 fl (7.4-10.4); Monocytes Absolute Auto 0.4 K/mm3 (0.1-0.6); Monocytes Percent Auto 7.4 % (2.6-8.5); Neutrophils Absolute Auto 2.7 K/mm3 (1.3-6.7); Neutrophils Percent Auto 50.5 % (45.5-73.1); Platelet Count Result 193 k/mm3 (150-375); Red Cell Distribution Width 15.9 % (11.5-14.5); White Blood Count 5.4 K/mm3 (4.5-10.0)
[2021-09-21 13:21] LABS: Iron 67 ug/dL (37-170)
[2021-09-21 13:30] LABS: Percent Iron Saturation 24 % (20-50)
== END 2021-09-21 12:18 | disposition home or self-care (01) ==
LOC: ANHLAB 12:19
PROVIDERS: PCP Internal Medicine; Visit Provider Nurse Practitioner
DX: D64.9 Anemia, unspecified (principal)
CPT/HCPCS: 36415; 82728; 83540; 83550; 85025

== ENCOUNTER 2021-11-21 10:15 | Emergency (ER) | payer OTHER, SELFPAY ==
--- NOTE | 2021-11-21 10:28 | ED.URI ---
HPI - URI/Sore Throat General Chief Complaint: Upper Respiratory Infection Stated Complaint: sore throat/cough Time Seen by Provider: 11/21/21 10:28 Source: patient Mode of arrival: ambulatory Limitations: no limitations History of Present Illness HPI Narrative: 31-year-old female presents with complaint of fatigue, chills, sore throat, cough and congestion since yesterday. Reports son has had similar symptoms for 3 to 4 days. Afebrile. No shortness of breath or chest pain. COVID vaccinated. Not taking any [id number] medications to treat her symptoms. All systems reviewed and negative except as noted above. Related Data Home Medications Medication Instructions Recorded Confirmed cetirizine 10 mg tablet (Zyrtec) 10 mg PO DAILY PRN 07/30/21 09/03/21 ferrous sulfate 325 mg (65 mg 325 mg PO DAILY 07/30/21 09/03/21 iron) tablet docusate sodium 100 mg capsule 100 mg PO BID 09/03/21 09/03/21 (Colace) psyllium seed (sugar) oral powder 1 tbsp PO DAILY 09/03/21 09/03/21 (Metamucil (sugar) oral powder) Allergies Allergy/AdvReac Type Severity Reaction Status Date / Time hydrocodone AdvReac Unknown Nausea and Verified 07/13/21 08:58 Vomiting Review of Systems Review of Systems: CONSTITUTIONAL: Denies fever. Reports chills. Denies sweats. EYES: Denies visual changes, redness, or discharge. ENT: Reports rhinorrhea, congestion, sore throat. Denies otalgia. CARDIOVASCULAR: Denies chest pain, palpitations, or edema. RESPIRATORY: Reports cough. Denies dyspnea. GASTROINTESTINAL: Denies abdominal pain, nausea, vomiting, or diarrhea. GENITOURINARY: Denies dysuria or hematuria. SKIN: Denies rash or itching. MUSCULOSKELETAL: Denies back pain, joint pain, or myalgia. NEUROLOGIC: Denies headache, numbness, or weakness. PSYCHIATRIC: Denies anxiety or depression. All other systems reviewed are negative, except as documented in HPI. [facility] Past Medical History Medical History Anxiety with depression Frequent UTI Left elbow fracture Post depression Skin lesion Surgical History Surgical History deliv NOS-unsp H/O elbow surgery 2018 H/O wrist surgery 2018 Family History Family History Father Diabetes mellitus Skin cancer Mother Hypertension Sibling Hypothyroidism Social History Social History Smoking status: Never smoker Alcohol intake: current Substance use: never Gender identity (if verbalized by the patient): Female Spiritual care concerns: No Comments At time of signature, agree with nursing past medical, surgical, social and family history. There is no relevant family history pertinent to the presenting complaint. Exam Narrative: GENERAL: This is a well-nourished, well-developed patient, in no apparent distress. HEAD: normocephalic, atraumatic. EYES: PERRL. Sclera clear/white. Vision is grossly intact. EARS: External ears normal, auditory canals clear and without drainage, TMs normal without perforation. Hearing grossly intact. NOSE: External nose normal with clear nasal drainage. THROAT: Mucous membranes moist, mild erythema to posterior pharynx with clear postnasal drainage. NECK: Neck supple, non-tender without lymphadenopathy, masses or thyromegaly. CARDIOVASCULAR: Regular rate and rhythm without murmurs, gallops, or rubs. RESPIRATORY: Clear to auscultation. Breath sounds equal bilaterally. No wheezes, rales, or rhonchi. SKIN: warm, Dry, intact with no suspicious lesions or rash, good texture and turgor. NEURO: awake, alert, and oriented to person, place and time. There were no obvious focal neurologic abnormalities. EXTREMITIES: Normal range of motion to all extremities. Course Course Level of Care: Express Care Visit Vital Sign
[2021-11-21 10:35] VITALS: BP 94/63; PULSE 92; RESP 16; TEMP 37.2; O2SAT 100
[2021-11-21 10:39] VITALS: BP 94/63; PULSE 92; RESP 16; TEMP 37.2; O2SAT 100
== END 2021-11-21 11:26 | disposition home or self-care (01) ==
PROVIDERS: Emergency Provider Nurse Practitioner Family; PCP Internal Medicine
DX: J06.9 Acute upper respiratory infection, unspecified (principal); Z20.822 Contact with and (suspected) exposure to COVID-19
CPT/HCPCS: 87081; 87426; 87880; 99213; C9803; G0463

== ENCOUNTER 2021-11-29 15:53 | Emergency (ER) | payer OTHER, SELFPAY ==
--- NOTE | 2021-11-29 16:04 | ED.GENADULT ---
HPI - General Adult General Chief complaint: Ear Stated complaint: Ear Pain History of Present Illness HPI narrative: 31-year-old female patient presents to the [facility] with complaints of right ear pain and a cough for the past week. Patient states she was seen here last week Tuesday was tested for COVID and influenza and everything and states everything came back negative. Patient states she is continue to take [id number] Mucinex and Zyrtec but her symptoms have worsened and now has developed right ear pain. Denies any chest pain or shortness of breath. Patient states she does have history of asthma but denies having a rescue inhaler at home. Denies any nausea, vomiting or diarrhea. Denies any fevers that she is aware of. Related Data Home Medications Medication Instructions Recorded Confirmed cetirizine 10 mg tablet (Zyrtec) 10 mg PO DAILY 07/30/21 11/29/21 ferrous sulfate 325 mg (65 mg 325 mg PO DAILY 07/30/21 11/29/21 iron) tablet docusate sodium 100 mg capsule 100 mg PO BID 09/03/21 11/29/21 (Colace) psyllium seed (sugar) oral powder 1 tbsp PO DAILY 09/03/21 11/29/21 (Metamucil (sugar) oral powder) Allergies Allergy/AdvReac Type Severity Reaction Status Date / Time hydrocodone AdvReac Unknown Nausea and Verified 11/29/21 16:10 Vomiting Review of Systems Review of Systems: CONSTITUTIONAL: Denies fever, chills, or sweats. EYES: Denies visual changes, redness, or discharge. ENT: Positive rhinorrhea, congestion, denies sore throat, positive right otalgia. CARDIOVASCULAR: Denies chest pain, palpitations, or edema. RESPIRATORY: Positive cough, denies dyspnea. GASTROINTESTINAL: Denies abdominal pain, nausea, vomiting, or diarrhea. GENITOURINARY: Denies dysuria or hematuria. SKIN: Denies rash or itching. MUSCULOSKELETAL: Denies back pain, joint pain, or myalgia. NEUROLOGIC: Denies headache, numbness, or weakness. PSYCHIATRIC: Denies anxiety or depression. [facility] Past Medical History Medical History (Updated 11/29/21 @ 16:29 by WILMAR Oreilly) Anxiety with depression Asthma Frequent UTI Left elbow fracture Post depression Skin lesion Surgical History Surgical History deliv NOS-unsp H/O elbow surgery 2018 H/O wrist surgery 2018 Family History Family History Father Diabetes mellitus Skin cancer Mother Hypertension Sibling Hypothyroidism Social History Social History Smoking status: Never smoker Alcohol intake: current Substance use: never Gender identity (if verbalized by the patient): Female Spiritual care concerns: No Comments At the time of my signature I agree with nursing past medical history, surgical, social, and family history. There is no relevant family history pertinent to the presenting complaint. Exam Narrative: GENERAL: Well-appearing, well-nourished, and in no acute distress. HEAD: Normocephalic, atraumatic. EYES: PERRLA and EOMI. ENT: Nares with erythema and edema noted bilaterally, no rhinorrhea or epistaxis. Mucous membranes moist. Posterior pharynx with no erythema, tonsillar lodgment, exudates or lesions present. The right TM is very red. No foreign bodies to the canal. NECK: Supple. No lymphadenopathy CHEST: Clear to auscultation. No respiratory distress. Patient able talk in clear complete sentences. There is a cough noted during exam. HEART: Regular rate and rhythm. No murmur heard. Normal peripheral pulses. ABDOMEN: Soft, nontender, nondistended, normal active bowel sounds. EXTREMITIES: Normal range of motion. No edema. SKIN: Warm, dry, no rash. NEURO: No focal deficits. Alert and oriented x3. Course Course Level of Care: Express Care Visit Vital Signs Vital signs: Vital Signs Temperature 36.6 C 11/29/21 16:06 Pulse Rate 94 /12
[2021-11-29 16:06] VITALS: BP 101/67; PULSE 94; RESP 20; TEMP 36.6; O2SAT 99
== END 2021-11-29 16:30 | disposition home or self-care (01) ==
PROVIDERS: Emergency Provider Nurse Practitioner Family; PCP Internal Medicine
DX: H66.91 Otitis media, unspecified, right ear (principal); J45.901 Unspecified asthma with (acute) exacerbation
CPT/HCPCS: 99213; G0463

== ENCOUNTER 2022-01-05 10:00 | Emergency (ER) | payer OTHER, SELFPAY ==
[2022-01-05 10:13] VITALS: BP 94/67; PULSE 107; RESP 18; TEMP 36.9; O2SAT 100
--- NOTE | 2022-01-05 10:41 | ED.URI ---
HPI - URI/Sore Throat General Chief Complaint: Upper Respiratory Infection Stated Complaint: Sore Throat Time Seen by Provider: 01/05/22 10:27 Source: patient Mode of arrival: ambulatory Limitations: no limitations History of Present Illness HPI Narrative: Patient presents today complaining of sore throat, left ear pain, and headache since yesterday. Denies any additional symptoms. She currently rates her pain 6/10 and has tried no [id number]-[id number] treatment prior to arrival. She presents today with her son with similar symptoms. Related Data Allergies Allergy/AdvReac Type Severity Reaction Status Date / Time hydrocodone AdvReac Unknown Nausea and Verified 01/05/22 10:14 Vomiting Review of Systems Review of Systems: CONSTITUTIONAL: Denies body aches, fever, chills, or sweats. EYES: Denies visual changes, redness, or discharge. ENT: Denies rhinorrhea, congestion. + Throat, left ear pain CARDIOVASCULAR: Denies chest pain, palpitations, or edema. RESPIRATORY: Denies cough or dyspnea. GASTROINTESTINAL: Denies abdominal pain, nausea, vomiting, or diarrhea. GENITOURINARY: Denies dysuria or hematuria. SKIN: Denies rash, itching, or wounds. MUSCULOSKELETAL: Denies back pain, joint pain, or myalgia. NEUROLOGIC: Denies numbness, tingling, or weakness.+ Headache PSYCH: Denies depression or anxiety. [facility] Past Medical History Medical History Anxiety with depression Asthma Frequent UTI Left elbow fracture Post depression Skin lesion Surgical History Surgical History deliv NOS-unsp H/O elbow surgery 2018 H/O wrist surgery 2018 Family History Family History Father Diabetes mellitus Skin cancer Mother Hypertension Sibling Hypothyroidism Social History Social History Smoking status: Never smoker Alcohol intake: current Substance use: never Gender identity (if verbalized by the patient): Female Spiritual care concerns: No Comments At time of signature, I have reviewed and agree with nursing past medical, surgical, social and family history unless otherwise noted. Please see nursing chart for further information. There is no relevant family history pertinent to the presenting complaint Exam Narrative: GENERAL: Well-appearing, well-nourished, and in no acute distress. HEAD: Normocephalic, atraumatic. EYES: EOMI. No redness or drainage. Conjunctivae normal. ENT: Mucous membranes pink and moist. Nares clear. No rhinorrhea. Throat is normal. Left ear with mild middle ear effusion. Throat normal. Uvula midline. NECK: Normal AROM. Supple. No lymphadenopathy. CHEST: No respiratory distress. Clear to auscultation. HEART: Regular rate and rhythm. No murmur appreciated. Normal peripheral pulses. EXTREMITIES: Normal range of motion. No edema. SKIN: Warm, dry, no rash. Capillary refill normal. Normal skin turgor. NEURO: No focal deficits. Alert and oriented x3. Gait steady. PSYCH: Normal affect. No signs of depression or anxiety. Course Course Emergency Course: At this time, we do not have capability of doing a rapid strep screen. We will culture the throat to verify whether or not patient has strep throat. She agrees to plan. Level of Care: Express Care Visit Vital Signs Vital signs: Vital Signs Temperature 98.5 F 01/05/22 10:13 Pulse Rate 107 H 01/05/22 10:13 Respiratory Rate 18 01/05/22 10:13 Blood Pressure 94/67 L 01/05/22 10:13 Pulse Oximetry 100 01/05/22 10:13 Oxygen Delivery Room Air 01/05/22 10:13 Temperature 98.5 F 01/05/22 10:13 Pulse Rate 107 H 01/05/22 10:13 Respiratory Rate 18 01/05/22 10:13 Blood Pressure 94/67 L 01/05/22 10:13 Pulse Oximetry 100 01/05/22 10:13 Oxygen Delivery Phoebe
== END 2022-01-05 11:03 | disposition home or self-care (01) ==
PROVIDERS: Emergency Provider Nurse Practitioner; PCP Internal Medicine
DX: J06.9 Acute upper respiratory infection, unspecified (principal); J45.909 Unspecified asthma, uncomplicated
CPT/HCPCS: 99211; G0463

== ENCOUNTER 2022-06-29 09:02 | Outpatient (CLI) | payer OTHER, SELFPAY ==
--- NOTE | 2022-06-29 11:00 | NEURO_ITS ---
Impression: # Complains of numbness of left hand. # Normal nerve conduction study. # No Carpal Tunnel Syndrome or ulnar neuropathy. # Normal needle/EMG exam. # Clinical correlation recommended. Motor Nerve Conduction Upper Extremities Median Nerve Conduction Velocity (m/sec) Terminal Latency (msec) Response Voltage(mV) Elbow-Wrist Wrist Elbow Wrist Right Left 58 3.2 8 4 Ulnar Nerve Conduction Velocity (m/sec) Terminal Latency (msec) Response Voltage(mV) Above Elbow Below Elbow Wrist Above Elbow Below Elbow Wrist Right Left 58 2.3 5 6 F-Wave Latency Median (ms) Ulnar (ms) Right Left 25.1 25.3 Sensory Nerve Conduction Upper Extremities Median Nerve Stimulation Terminal Latency (msec) Wrist/Digit Response Voltage (uV) Wrist Right Left 2.5/2.5 98/93 Ulnar Nerve Stimulation Terminal Latency (msec) Wrist/Digit Response Voltage (uV) Wrist Right Left 2.4 94 Radial Nerve Terminal Latency (msec) Response Voltage(mV) Right Left 2.2 32 Left Right Muscles Examined Fibrillation Fasciculation Scarcity Voltage Duration Left Right Left Right Left Right Left Right Left Right Deltoid Biceps X Brachioradialis Triceps X Pronator Teres X Ext Indicis X Ext Digitorum X Abd Poll Brev X 1st Dorsal Interosseus Paraspinals MTDD
== END 2022-06-29 09:03 | disposition home or self-care (01) ==
LOC: ANHNEURO 09:04
PROVIDERS: PCP Internal Medicine; Visit Provider Clinical Nurse Specialist
DX: R20.0 Anesthesia of skin (principal)
CPT/HCPCS: 95886; 95909

== ENCOUNTER 2022-07-22 12:30 | Outpatient (RCR) | payer OTHER, SELFPAY ==
--- NOTE | 2022-06-17 09:39 | PTOPEVAL1 ---
Assessment and note entered by Nina Herrera DPT Evaluation Information Assessment Status Evaluation Subjective Information Pt reports she has 4 children, 2 C-sections and 2 vaginal deliveries. With her first states she had a second uterine incision. Reports decreased sensation in her scar and has problems going to the bathroom. History of frequent UTI's, confirmed by lab cultures. Reports constipation and pain more abdominal but sometimes pelvic. Highest pain recently 8/10 and lowest 0/10. Has anemia and takes iron which increases the constipation. Urinates more than 10 times a day, anywhere from 0 to 2-3 times at night. Pain with urination frequently. Denies urine leakage. BM every few days, typically painful. Pt is sexually active currently, can sometimes cause pain after. Periods are regular and painful, especially the first few days. Denies pain with menstrual cup use or previous pelvic exam/pap smear. Pt reports she is not able to be active with her kids due to her pain. Difficulty bending over to pick something up off the floor. Reported Pain Level Pain Score 1: Self Report Assessment PT Clinical Summary The patient is presenting to skilled therapy with a history of C-sections and abdominal pain. She presents with tenderness to palpation and tissue adhesions as well as a diastasis recti. Plan to assess pelvic floor next visit. Her impairments and contributing to her pain and difficulty being active with her children and bending over. She will benefit from therapy to decrease her pain and return to prior level of function. Plan of Care Interventions Electrical Stimulation,Hot Pack/Cold Pack,Manual Therapy,Neuro Re-education,Patient/Caregiver Education,Therapeutic Activities,Therapeutic Exercise,Self-Care/Home Management PT Services Indicated Yes Treatment Frequency and 1 time a week for 6 weeks Duration These treatments will address the objective and functional deficits as defined above. The patient will be advanced safely and appropriately in order for the patient to progress towards his/her prior level of function. Additional exercises will be introduced and as well as a comprehensive home exercise program upon discharge, if needed, ?to ensure carryover of functional gains achieved in the clinic. This treatment plan has been reviewed and agreement upon by the patient.
--- NOTE | 2022-07-16 08:55 | PCPTNOTE ---
Patient cancelled appointment due to illness.
--- NOTE | 2022-07-29 13:24 | PCPTNOTE ---
Patient called and canceled appointment due to illness
--- NOTE | 2022-08-11 12:56 | PTOPDC ---
Assessment and note entered by Nina Herrera DPT Evaluation Information Assessment Status Discharge - Pt Not Presen Subjective Information Assessment PT Clinical Summary Patient is self discharging.
== END 2022-08-11 15:08 | disposition home or self-care (01) ==
LOC: ANHPT 12:30
PROVIDERS: PCP Internal Medicine; Visit Provider Nurse Practitioner
DX: K62.89 Other specified diseases of anus and rectum (principal)
CPT/HCPCS: 97110; 97140; 97162

== ENCOUNTER 2022-07-30 09:39 | Outpatient (CLI) | payer OTHER, SELFPAY ==
[2022-07-30 10:10] LABS: Basophils Percent Auto 0.8 % (0.2-1.2); Eosinophils Absolute Auto 0.1 K/mm3 (0-0.3); Eosinophils Percent Auto 2.4 % (0-4.4); Hematocrit 36.4 % (37.0-47.0); Hemoglobin 11.9 g/dL (12.0-15.0); Immature Granulocyte Absolute 0.01 K/mm3 (0.00-0.031); Immature Granulocyte Percent A 0.2 % (0-0.5); Lymphocytes Absolute Auto 1.54 K/mm3 (0.9-3.2); Mean Corpuscular HGB Conc 32.7 g/dl (32-36); Mean Corpuscular Hemoglobin 31.2 pg (26-34); Mean Corpuscular Volume 95.5 fl (80-100); Mean Platelet Volume 9.8 fl (7.4-10.4); Monocytes Absolute Auto 0.4 K/mm3 (0.1-0.6); Monocytes Percent Auto 7.5 % (2.6-8.5); Neutrophils Absolute Auto 2.9 K/mm3 (1.3-6.7); Neutrophils Percent Auto 58.1 % (45.5-73.1); Platelet Count Result 181 k/mm3 (150-375); Red Blood Count 3.81 M/mm3 (4.2-5.4); Red Cell Distribution Width 13.2 % (11.5-14.5)
[2022-07-30 10:19] LABS: Alanine Aminotransferase 17 U/L (6-35); Albumin Level 4.5 g/dL (3.5-5.1); Alkaline Phosphatase 55 U/L (38-126); Anion Gap 7 mmol/L (8-16); Aspartate Amino Transferase 24 U/L (14-36); Bilirubin,Total 0.7 mg/dL (0.2-1.3); Blood Urea Nitrogen 14 mg/dL (7-17); Calcium 8.4 mg/dL (8.4-10.2); Carbon Dioxide 26 mmol/L (22-30); Chloride 106 mmol/L (98-107); Estimated Glomerular Filt Rate > 60; Glucose 90 mg/dL (65-110); Potassium 3.8 mmol/L (3.4-5.0); Sodium 139 mmol/L (137-145)
[2022-07-30 10:40] LABS: Iron 58 ug/dL (37-170)
[2022-07-30 10:49] LABS: Percent Iron Saturation 23 % (20-50)
== END 2022-07-30 09:40 | disposition home or self-care (01) ==
LOC: ANHLAB 09:41
PROVIDERS: PCP Internal Medicine; Visit Provider Nurse Practitioner
DX: D64.9 Anemia, unspecified (principal)
CPT/HCPCS: 36415; 80053; 82728; 83540; 83550; 85025

== ENCOUNTER 2023-03-21 10:36 | Emergency (ER) | payer OTHER, SELFPAY ==
[2023-03-21 10:48] VITALS: BP 92/61; PULSE 88; RESP 16; TEMP 37.3; O2SAT 99
--- NOTE | 2023-03-21 10:51 | ED.URI ---
HPI - URI/Sore Throat General Chief Complaint: Upper Respiratory Infection Stated Complaint: ear pain, throat soer, neck stiff Time Seen by Provider: 03/21/23 10:51 Source: patient, RN notes reviewed and old records reviewed Mode of arrival: ambulatory Limitations: no limitations History of Present Illness HPI Narrative: 32-year-old female presents to the [facility] with complaints left ear pain as well as left side of her throat pain since Tuesday, 5 days. No treatment prior to arrival. Denies fevers. States she has also had generalized body aches. Related Data Allergies Allergy/AdvReac Type Severity Reaction Status Date / Time hydrocodone AdvReac Unknown Nausea and Verified 03/21/23 10:46 Vomiting Review of Systems Review of Systems: All systems reviewed & are unremarkable except as noted in HPI and below Constitutional: Constitutional: Reports no additional constitutional complaints Eyes: Eyes: Reports no additional eye complaints ENT: Reports as per HPI Cardiovascular: Cardiovascular: Reports no additional cardiovascular complaints, Denies chest pain and Denies dyspnea Respiratory: Respiratory: Reports no additional respiratory complaints, Denies chest congestion, Denies cough and Denies dyspnea Gastrointestinal: Gastrointestinal: Reports no additional gastrointestinal complaints, Denies abdominal pain, Denies nausea and Denies vomiting Musculoskeletal: Musculoskeletal: Reports no additional musculoskeletal complaints Integumentary/Breasts: Skin/Breast: Reports system reviewed and no additional complaints, except as docu Neurologic: Reports system reviewed and no additional complaints, except as documented Psychiatric: Psychiatric: Reports no additional psychiatric complaints Allergic/Immunologic: Allergic/Immunologic: Reports no additional allergic/immunologic complaints PMFSH Past Medical History Medical History Anxiety with depression Asthma Frequent UTI Left elbow fracture Post depression Skin lesion Surgical History Surgical History deliv NOS-unsp H/O elbow surgery 2018 H/O wrist surgery 2018 Family History Family History Father Diabetes mellitus Skin cancer Mother Hypertension Sibling Hypothyroidism Social History Social History Smoking status: Never smoker Alcohol intake: current Substance use: never Lack of Transportation: No Lack of Food: Sometimes True Current Housing: I Have Housing Concerned About Future Housing: No Difficulty Paying Gas/Electric Bills: YES Difficulty Paying for Meds: YES Currently Unemployed: No Education: High School Diploma/GED Difficulty w/ Childcare or Family Care: No Gender identity (if verbalized by the patient): Female Spiritual care concerns: No Comments At the time of my signature, I reviewed and agree with the nursing past medical, surgical, social, and family history. There is no relevant family history pertinent to the patient complaint. Exam Const: General: cooperative, healthy appearing, comfortable, no acute distress, well developed, alert and well nourished Nutritional Appearance: well nourished Orientation/consciousness: patient oriented x3 Limitations: no limitations HENMT: Head: normal to inspection Ears: hearing grossly normal bilaterally, external ears normal, TM's normal bilaterally and EAC's normal Face/Nose/Sinus: Normal external nose present, Normal nares present, Normal nasal mucous membranes and turbinates present, normal facial exam and face symmetric Face and sinus: normal facial exam and face symmetric Mouth: Yes Normal oral and palatal mucosa present, Yes lip normal and Yes moist mucous membranes Throat: uvula midline, posterior oropharynx abnormal eryt
== END 2023-03-21 11:00 | disposition home or self-care (01) ==
PROVIDERS: Emergency Provider Nurse Practitioner; PCP Internal Medicine
DX: J02.0 Streptococcal pharyngitis (principal)
CPT/HCPCS: 87880; 99213; G0463

== ENCOUNTER 2023-06-01 15:45 | Outpatient (CLI) | payer OTHER, SELFPAY ==
[2023-06-04 13:28] LABS: NIL 0.02 IU/mL; Quantiferon TB Plus, 1T NEGATIVE (NEGATIVE)
== END 2023-06-01 15:46 | disposition home or self-care (01) ==
LOC: ANHLAB 15:46
PROVIDERS: PCP Internal Medicine; Visit Provider Clinical Nurse Specialist
DX: Z11.1 Encounter for screening for respiratory tuberculosis (principal)
CPT/HCPCS: 36415; 86480

== ENCOUNTER 2023-06-06 08:14 | Outpatient (CLI) | payer OTHER, SELFPAY | END 2023-06-06 08:15 | disposition home or self-care (01) | LOC: ANHSURGERY 08:17 | PROVIDERS: PCP Internal Medicine; Visit Provider Obstetrics & Gynecology | DX: Z01.818 Encounter for other preprocedural examination (principal); N92.0 Excessive and frequent menstruation with regular cycle | CPT/HCPCS: 36415; 86850; 86900; 86901 ==

== ENCOUNTER 2023-06-08 00:45 | Day surgery (SDC) | payer OTHER, SELFPAY ==
[2023-06-02 14:46] VITALS: BMI 17.2
--- NOTE | 2023-06-02 14:48 | PC.NURSE ---
Report to the Outpatient Waiting Room, entrance under the green pavilion located off [facility], at time _0800_ on date _[id number]_. Planned Procedure Time: _1000_. Time changes happen often and if your time is changed the preop area will call you the afternoon before. - You and your visitor will be asked to self-screen and do not enter if you have any COVID symptoms. - A mask is optional within the hospital at this time. Patients may have clear liquids (water, carbonated beverages, clear teas, apple juice) until 3 hours prior to surgery with a maximum of 20 ounces. - No food from midnight until time of surgery Take the following medications with a SIP of water the morning of surgery: ____Fluoxetine DO NOT STOP ANY OF YOUR OTHER PRESCRIPTION MEDICATIONS PRIOR TO SURGERY ?EXCEPT THE FOLLOWING Medications to discontinue per physician All vitamins Date to take last [phone] Please no make-up, nail omani, hairspray, perfume, deodorant, or body powder the day of surgery. No jewelry (including any body piercings) or valuables the day of surgery, leave them at home. Please take a shower or bath the night before, or the morning of, surgery with an antibacterial soap. Wear comfortable, loose fitting clothing. - Jewelry must be removed prior to entering the operating room. Rings and piercings that are not removed may be cut off. - The hospital will not accept responsibility for valuables. - Please leave all valuables, including medications, at home the day of surgery. If you are going home after surgery, a licensed driver trainer must drive you home. - NO public transportation without another adult if you receive anesthesia. - We recommend that an adult stay with you for 24 hours following discharge. - We also recommend that you do not drive, make important decision, drink alcoholic beverages, or take any drugs that were not prescribed by your health care provider for at least 24 hours after your discharge time. Follow any additional instructions given to you from your surgeon. If you or anyone in your household have experienced Covid symptoms in the past week, please notify your surgeon or the nurse liaison at the phone number below for possible testing. Telephone instructions given to _Galina__and asked if any additional questions and then verbalized understanding. Patient advised to call surgeon office or pre surgery nurse liaison [phone] if any additional questions.
[2023-06-08] VITALS (12 sets, daily range): BP systolic 70–98; BP diastolic 54–76; PULSE 57–87; RESP 9–24; TEMP 36.1–36.4; O2SAT 93–100
[2023-06-08] MEDS: LACTATED RINGERS 1,000 ML 30 ML IV CONT ×3 (08:37→12:24)
[2023-06-08] MEDS: ACETAMINOPHEN 500 MG TABLET 1000 MG PO (08:38)
[2023-06-08] MEDS: KETOROLAC 15 MG/ML VIAL (*BKC) IV PUSH (08:38)
[2023-06-08] MEDS: SCOPOLAMINE 1 MG PATCH 1 PATCH TRANSDERM (08:40)
--- NOTE | 2023-06-08 08:58 | WPDANESEPPF ---
Anes - Initial Pre Proc Eval Procedure: Operation Date: 06/08/23 10:00 Proposed Procedures p Total Laparoscopic Hysterectomy with Bilateral Salpingectomy - Lee Ramirez MD Date/Time: 06/08/23 08:58 Surgeon: Lee Ramirez MD Pre Op Diagnosis: Menorrhagia Patient Data Age: 32 Gender: F Height: 1.63 m Weight: 45.4 kg Last Vital Signs Temp 36.4 C 06/08/23 08:10 Pulse 76 06/08/23 08:10 Resp 16 06/08/23 08:10 BP 98/63 L 06/08/23 08:10 Pulse Ox 100 06/08/23 08:10 O2 Del Method Room Air 06/08/23 08:10 Allergies Allergy/AdvReac Type Severity Reaction Status Date / Time hydrocodone AdvReac Intermediate Nausea and Verified 06/02/23 14:37 Vomiting oxycodone AdvReac Intermediate Nausea and Verified 06/08/23 08:54 Vomiting Home Medications Medication Instructions Recorded Confirmed Type fluoxetine 20 mg capsule 20 mg PO DAILY #90 caps 11/16/22 06/08/23 Rx albuterol sulfate 90 mcg/actuation 2 puff inhalation .Q4 hours PRN 01/31/23 06/02/23 Rx aerosol inhaler (Ventolin HFA) cough #8.5 grams ascorbic acid (vitamin C) 1,000 mg 1 g PO DAILY 06/02/23 06/08/23 History tablet (Vitamin C) biotin 10,000 mcg chewable tablet 10,000 mcg PO DAILY 06/02/23 06/08/23 History (Hair, Skin and Nails (biotin)) cetirizine 10 mg tablet (Zyrtec) 10 mg PO DAILY 06/02/23 06/08/23 History cholecalciferol (vitamin D3) 25 25 mcg PO DAILY 06/02/23 06/08/23 History mcg (1,000 unit) chewable tablet (Vitamin D3) cranberry fruit concentrate 250 mg 250 mg PO BID 06/02/23 06/08/23 History chewable tablet (Azo Cranberry) Patient hx anesthesia problems: none Family hx anesthesia problems: none Results Review: All pre-operative results and documents have been reviewed as part of the pre-operative evaluation. [facility] Past Medical History Medical History Abdominal bloating Abdominal bloating Abdominal pain Anxiety with depression Asthma Carpal tunnel syndrome De Quervain's tenosynovitis, left Decreased sex drive Frequent UTI Left elbow fracture Localized swelling, mass and lump, unspecified Numbness and tingling in left arm Pharyngitis, acute Post depression Rectal pain Screening for lipid disorders Shoulder pain, left Sinusitis Skin lesion Unwanted fertility Urine ketones Surgical History Surgical History deliv NOS-unsp H/O elbow surgery 2018 H/O wrist surgery 2018 Previous section Family History Family History Father Diabetes mellitus Skin cancer Mother Hypertension Sibling Hypothyroidism Social History Social History Smoking status: Never smoker Alcohol intake: current Drinks per week: 1 Substance use: never Lack of Transportation: No Lack of Food: Sometimes True Current Housing: I Have Housing Concerned About Future Housing: No Difficulty Paying Gas/Electric Bills: YES Difficulty Paying for Meds: YES Currently Unemployed: No Education: High School Diploma/GED Difficulty w/ Childcare or Family Care: No Living arrangements: with family Gender identity (if verbalized by the patient): Female Spiritual care concerns: No Anes - Eval Final PreProcedure Day of Procedure 06/08/23 08:58 Patient weight: thin Heart: regular rate and rhythm Lungs: clear to auscultation Airway: Mallampati scale class II Neurological: alert and oriented Last oral intake: >/= 8 hours ASA classification: II Emergent: no Anesthetic plan: proceed Anesthesia type and monitoring: general ETT and standard monitoring Results Review: All pre-operative results and documents have been reviewed as part of the pre-operative evaluation. Informed Consent: The patient's anesthetic plan and its attendant risks and bene
--- NOTE | 2023-06-08 09:32 | WPDHPUPDATE1 ---
History and Physical Update Update Date/Time: 06/08/23 09:32 History and Physical has been reviewed, including an updated exam of the patient. There are NO changes in the patient's condition. Risks, benefits, and alternatives have been discussed and questions answered. Patient agrees to proceed with procedure.
[2023-06-08] MEDS: ceFAZolin 2 GM/D5W 50 ML 2 GM/50 ML BAG IVPB (09:47)
[2023-06-08] MEDS: ceFAZolin SODIUM 1 GM VIAL (10:19)
--- NOTE | 2023-06-08 12:03 | P.OP_ITS ---
Procedure Note - Detailed Date of Procedure 06/08/23 Pre-op Diagnosis Menorrhagia Post-op Diagnosis Same Procedure Performed Total laparoscopic hysterectomy. Surgeon Lee Ramirez MD Anesthesia General Findings mildly enlarged uterus, scarring throughout the pelvis, adhesions between the uterus and anterior pelvis and bladder. Adhesions between the omentum and the anterior abdominal wall Description of Procedure This patient was taken to the operating room. She was prepped and draped in the dorsal lithotomy position after induction of general anesthesia. The uterine manipulator and Jovanny cup were placed. This was done with a speculum and tenaculum. The speculum was placed. The cervix was grasped with a tenaculum. The stay sutures were placed at 3 and 9:00 a.m.. The stay sutures of 0 Vicryl were brought through the appropriately sized Jovanny cup. The tip of the DEIRDA manipulator was placed in the intrauterine cavity. The cup was slid into place around the cervix and into the fornices. It was locked into place. The sutures were then wrapped around the handle and tied under tension. A 5 mm skin incision was made in the left upper quadrant the abdomen. A 5 mm trocar was inserted into the intrauterine cavity under direct visualization of the scope. Pneumoperitoneum was achieved. A left lower quadrant 11 mm incision was made with scalpel. An 11 mm trocar was inserted into the anterior abdominal cavity under direct visualization the scope. A 5 mm infraumbilical incision was made with a scalpel and a 5 mm trocar was inserted the intra-abdominal cavity under direct visualization of the scope. Bilateral ureteral lysis was performed. This was done from the pelvic brim down to the uterine artery. This was done with careful dissection using sharp and blunt dissection. The fallopian tubes were removed bilaterally. The mesosalp inx around the fallopian tubes were cauterized transected with LigaSure cautery. This was done in a bilateral fashion from the ovary to the uterine cornua. The fallopian tube was transected at the uterine cornu and amputated. The tube was taken out the left lower quadrant trocar site. In a stepwise fashion along the lateral aspects of the uterus the round ligament and broad ligaments were caut erized transected down to the level of the uterine arteries. A bladder flap was created in the bladder was moved distally to the end of the cervix and over the Jovanny cup. The bilateral uterine arteries were cauterized and transected. Colpotomy was then performed. In a circumferential fashion the vagina was transected using unipolar cautery. The incision was made down on the Jovanny cup. The uterus and cervix were taken out through the vagina. A pneumo occluder was placed in the vagina. The vaginal cuff was closed with a 0 V lock suture in a running fashion. The pelvis was irrigated with copious amounts antibiotic irrigation. The ureters were again examined and found to be intact and flowing freely under the uterine arteries into the bladder. The bladder was intact. It was examined directly. The vagina was irrigated with Betadine solution after removal of the Pneumo occluder. The patient was taken to recovery room. She was stable condition. Sponge lap and needle counts were correct x2. Estimated Blood Loss 90 Drains Yes Packing No Pathology Yes Complications No immediate complications Condition Stable Disposition Floor
[2023-06-08] MEDS: fentaNYL CITRATE INJ (*CRX) 100 MCG/2 ML VIAL 25 MCG IV PUSH ×8 (12:20→13:02)
--- NOTE | 2023-06-08 13:36 | SUR.PHASEI ---
1330: Patient meets PACU discharge criteria, unit bed unavailable at this time. Patient placed in extended recovery status.
--- NOTE | 2023-06-08 14:15 | PC.NURSE ---
1345-This patient, Galina Truong, was admitted to OB 2nd Floor Room 289-00. Patient/family oriented to hospital policies and general routines including ID bracelet, bed and alarms, visiting hours, pain management, procedures, bathroom and other care routines, personal items, smoking policy, room service/diet, and visiting hours. Information on how to activate the Rapid Response Team has been discussed. Patient/Family are encouraged to report perceived risks to care and to ask questions if they do not understand what they are told or what they should do.
[2023-06-08] MEDS: KETOROLAC 30 MG/ML VIAL (*BKC) IV PUSH (14:23)
[2023-06-08] MEDS: DEXTROSE 5%/0.45% SOD CHL 1,000 ML 125 ML IV CONT (14:24)
[2023-06-08] MEDS: ACETAMINOPHEN 325 MG TABLET 650 MG (18:54)
== END 2023-06-08 20:56 | disposition home or self-care (01) ==
LOC: ANHSURGERY 08:59 → ANHOB2 13:44
PROVIDERS: PCP Internal Medicine; Visit Provider Obstetrics & Gynecology
PROC: 0UT9FZZ Resection of Uterus, Via Natural or Artificial Opening With Percutaneous Endoscopic Assistance (ICD-10-PCS; CPT 58571; principal; 2023-06-08 10:00)
DX: N92.0 Excessive and frequent menstruation with regular cycle (principal); N73.6 Female pelvic peritoneal adhesions (postinfective); N88.8 Other specified noninflammatory disorders of cervix uteri; F41.8 Other specified anxiety disorders; J45.909 Unspecified asthma, uncomplicated; Z79.51 Long term (current) use of inhaled steroids
CPT/HCPCS: 58571; 88307; 99199; A9270; J0690; J1100; J1885; J2250; J2405; J2704; J3010; J7030; J7120

== ENCOUNTER 2023-07-04 10:34 | Emergency (ER) | payer OTHER, SELFPAY ==
[2023-07-04 10:47] VITALS: BP 98/66; PULSE 74; RESP 16; TEMP 36.6; O2SAT 100
--- NOTE | 2023-07-04 10:49 | ED.URI ---
HPI - URI/Sore Throat General Chief Complaint: Upper Respiratory Infection Stated Complaint: Sore Throat Time Seen by Provider: 07/04/23 10:49 Source: patient Mode of arrival: ambulatory Limitations: no limitations History of Present Illness HPI Narrative: Galina is a 33-year-old female patient presenting to the clinic today with complaints of a sore throat times 2-3 days. She reports she has felt feverish and has had some body aches. Thinks that she has strep. MD elicited complaint: sore throat Related Data Home Medications Medication Instructions Recorded Confirmed ascorbic acid (vitamin C) 1,000 mg 1 g PO DAILY 06/02/23 06/08/23 tablet (Vitamin C) biotin 10,000 mcg chewable tablet 10,000 mcg PO DAILY 06/02/23 06/08/23 (Hair, Skin and Nails (biotin)) cetirizine 10 mg tablet (Zyrtec) 10 mg PO DAILY 06/02/23 06/08/23 cholecalciferol (vitamin D3) 25 25 mcg PO DAILY 06/02/23 06/08/23 mcg (1,000 unit) chewable tablet (Vitamin D3) cranberry fruit concentrate 250 mg 250 mg PO BID 06/02/23 06/08/23 chewable tablet (Azo Cranberry) Allergies Allergy/AdvReac Type Severity Reaction Status Date / Time hydrocodone AdvReac Intermediate Nausea and Verified 06/02/23 14:37 Vomiting oxycodone AdvReac Intermediate Nausea and Verified 06/08/23 08:54 Vomiting Review of Systems Review of Systems: Pertinent positives per HPI. Patient denies any fever, chills, rash, headache, visual changes, dizziness, cough, shortness of breath, chest pain, palpitations, nausea, vomiting, diarrhea, constipation, abdominal pain, or any urinary issues. [facility] Past Medical History Medical History Abdominal bloating Abdominal bloating Abdominal pain Anxiety with depression Asthma Carpal tunnel syndrome De Quervain's tenosynovitis, left Decreased sex drive Frequent UTI Left elbow fracture Localized swelling, mass and lump, unspecified Numbness and tingling in left arm Pharyngitis, acute Post depression Rectal pain Screening for lipid disorders Shoulder pain, left Sinusitis Skin lesion Unwanted fertility Urine ketones Surgical History Surgical History deliv NOS-unsp H/O elbow surgery 2018 H/O wrist surgery 2018 Previous section Family History Family History Father Diabetes mellitus Skin cancer Mother Hypertension Sibling Hypothyroidism Social History Social History Smoking status: Never smoker Alcohol intake: current Drinks per week: 1 Substance use: never Lack of Transportation: No Lack of Food: Sometimes True Current Housing: I Have Housing Concerned About Future Housing: No Difficulty Paying Gas/Electric Bills: YES Difficulty Paying for Meds: YES Currently Unemployed: No Education: High School Diploma/GED Difficulty w/ Childcare or Family Care: No Living arrangements: with family Gender identity (if verbalized by the patient): Female Spiritual care concerns: No Comments At the time of my signature, I reviewed and agree with the nursing past medical, surgical, social, and family history. There is no relevant family history pertinent to the patient complaint. Exam Narrative: General: Well-developed, well nourished, in no apparent distress Head: Normocephalic, atraumatic Eyes: Pupils equally round and reactive to light bilaterally, EOM intact, sclera and conjunctive clear, no discharge, lids normal Ears: TMs intact and clear, ear canals clear, no drainage, grossly hearing normal. Nose: Nares patent, no discharge, no inflammation, no sinus tenderness. Mouth: Oral pharynx red with bilateral tonsillar enlargement without lesions or masses, good dentition, MMM. Neck: Supple, trachea midline, enlargement
== END 2023-07-04 11:06 | disposition home or self-care (01) ==
PROVIDERS: Emergency Provider Nurse Practitioner Family; PCP Internal Medicine
DX: J02.0 Streptococcal pharyngitis (principal); J45.909 Unspecified asthma, uncomplicated
CPT/HCPCS: 87880; 99213; G0463

== ENCOUNTER 2023-10-08 18:35 | Emergency (ER) | payer OTHER, SELFPAY ==
--- NOTE | ~2023-10-08 | CT_ITS ---
EXAMINATION: CT abdomen pelvis w con DATE: 10/08/2023 19:44 INDICATION: L flank pain TECHNIQUE: Computed tomography (CT) of the abdomen and pelvis was performed with 100 mL Omnipaque-350 intravenous contrast. Automated exposure control and iterative reconstruction technique were employe d. The dose-length product was 204.45 mGy-cm. COMPARISON: 02/04/2021, report only. FINDINGS: Lower thorax: Unremarkable Liver: Multiple hepatic cysts and subcentimeter hypodensities that also likely represent cysts or hem angiomas. Biliary/Gallbladder: Gallbladder is normal. No bile duct dilation. Pancreas: No mass or duct dilation. Spleen: Normal. Adrenals:No mass. Kidneys: No suspicious mass, obstructing stone, or hydronephrosis. GI tract: Mild distal esophageal wall edema. No small or large bowel dilation. Appendix not confident ly visualized. No right lower quadrant inflammatory process detected. Mesentery/Peritoneum: No ascites, mass, or free air. Retroperitoneum: No mass. Pelvis: Normal appearing urinary bladder. Absent uterus. Low transverse scar likely from prior C-sect ion. The bilateral ovaries are normal. 1.9 cm simple appearing left ovarian cyst which requires no ad ditional evaluation at this time. Small bilateral 2 to 3 mm deep pelvic calcifications likely phlebol iths. The distal ureters are somewhat difficult to trace but there are no associated findings to sugg est obstructive uropathy. Soft Tissues: Small left Bartholin's cyst. Bones: No acute osseous finding. IMPRESSION: Mild esophagitis. Otherwise no acute abdominal pelvic process detected. Reviewed, dictated and finalized at location K.
--- NOTE | 2023-10-08 18:48 | ED_ITS ---
HPI - Abdominal Pain General Chief Complaint: Abdominal Pain Stated Complaint: flank pain Time Seen by Provider: 10/08/23 18:48 Source: patient Mode of arrival: ambulatory Limitations: no limitations History of Present Illness HPI narrative: This is a 33-year-old female who presents to the ED with chief complaint of left flank pain beginning 1 week ago. Patient reports that the pain has steadily increased. Reports intermittent nausea as well with 1 episode of vomiting last night. Reports history of kidney stones and UTIs in the past but feels that she likely has UTI. Patient reports frequency, urgency and dysuria. Reports that she took a leftover amoxicillin today to try to get some relief. She has been taking Tylenol and ibuprofen with minimal relief. Reports temperature of a 100.4? last night. Related Data Home Medications Medication Instructions Recorded Confirmed ascorbic acid (vitamin C) 1,000 mg 1 g PO DAILY 06/02/23 06/08/23 tablet (Vitamin C) biotin 10,000 mcg chewable tablet 10,000 mcg PO DAILY 06/02/23 06/08/23 (Hair, Skin and Nails (biotin)) cetirizine 10 mg tablet (Zyrtec) 10 mg PO DAILY 06/02/23 06/08/23 cholecalciferol (vitamin D3) 25 25 mcg PO DAILY 06/02/23 06/08/23 mcg (1,000 unit) chewable tablet (Vitamin D3) cranberry fruit concentrate 250 mg 250 mg PO BID 06/02/23 06/08/23 chewable tablet (Azo Cranberry) Allergies Allergy/AdvReac Type Severity Reaction Status Date / Time hydrocodone AdvReac Intermediate Nausea and Verified 10/08/23 18:38 Vomiting oxycodone AdvReac Intermediate Nausea and Verified 10/08/23 18:38 Vomiting Review of Systems Review of Systems: All systems as dictated in [facility] Past Medical History Medical History Abdominal bloating Abdominal bloating Abdominal pain Anxiety with depression Asthma Carpal tunnel syndrome De Quervain's tenosynovitis, left Decreased sex drive Frequent UTI Left elbow fracture Localized swelling, mass and lump, unspecified Numbness and tingling in left arm Pharyngitis, acute Post depression Rectal pain Screening for lipid disorders Shoulder pain, left Sinusitis Skin lesion Unwanted fertility Urine ketones Surgical History Surgical History deliv NOS-unsp H/O elbow surgery 2018 H/O wrist surgery 2018 Previous section Family History Family History Father Diabetes mellitus Skin cancer Mother Hypertension Sibling Hypothyroidism Social History Social History Smoking status: Never smoker Alcohol intake: current Drinks per week: 1 Substance use: never Lack of Transportation: No Lack of Food: Sometimes True Current Housing: I Have Housing Concerned About Future Housing: No Difficulty Paying Gas/Electric Bills: YES Difficulty Paying for Meds: YES Currently Unemployed: No Education: High School Diploma/GED Difficulty w/ Childcare or Family Care: No Living arrangements: with family Gender identity (if verbalized by the patient): Female Spiritual care concerns: No Exam Narrative: GENERAL: Well-appearing, well-nourished, and in no acute distress. HEAD: Normocephalic, atraumatic. EYES: PERRLA and EOMI. ENT: Nares clear, no rhinorrhea or epistaxis. Mucous membranes moist. Oropharynx without tonsillar hypertrophy exudate or other lesions. NECK: Supple. No adenopathy or masses. CHEST: No respiratory distress. Clear to auscultation. No wheezes rales or rhonchi HEART: Regular rate and rhythm. No murmur heard. Normal peripheral pulses. ABDOMEN: Soft, nontender, nondistended, normal active bowel sounds. MSK: Normal range of motion. No edema. SKIN: Warm, dry, no rash. NEURO: Alert and oriented x3. No focal deficits. PSYCH: Normal mood and affect. Course Vital Signs Vital signs: Vital Signs Pulse Rate 68 10/08/23 18:52 Respiratory Rate 18 10/08/23 18:52 Blood Pressure 105/69 10/08/23 18:52 Pulse Oximetry 99 10/08/23 18:52 Pulse Rate 63 10/08/23 20:59 Respiratory Rate 18 10/08/23 20:59 Blood Pressure 98/76 L 10/08/23 20:59 Pulse Oximetry 100 10/08/23 20:59 MDM - Abdominal Pain MDM Narrative Medical decision making narrative: This is a 33-year-old female who presents to the ED with chief complaint of left flank pain x1 week. Vitals are normal. Exam shows left flank tenderness present. Lab work shows a normal white count the CBC. CMP unremarkable. UA shows 3+ leuks, greater than 100 wbc's and 4+ bacteria indicating acute UTI. CT abdomen and pelvis with IV contrast: IMPRESSION: Mild esophagitis. Otherwise no acute abdominal pelvic process detected. . Overall presentation is consistent with UTI. There may be some element of ascending infection but symptoms are well controlled here. Not exhibiting signs of renal colic. She will be given prescription for Keflex. She feels comfortable going home. Pt will be discharged in stable condition. Return precautions given and supportive measures discussed. Pt is understanding and ag reeable with plan for discharge and follow-up with PCP. Lab Data 10/08/23 19:01 10/08/23 19:01 Labs: Lab Results 10/08/23 10/08/23 Range/Units 19:01 19:19 WBC 6.2 (4.5-10.0) K/mm3 RBC 4.39 (4.2-5.4) M/mm3 Hgb 13.6 (12.0-15.0) g/dL Hct 42.4 (37.0-47.0) % MCV 96.6 (80-100) fl MCH 31.0 (26-34) pg MCHC 32.1 (32-36) g/dl RDW 13.1 (11.5-14.5) % Plt Count 209 (150-375) k/mm3 MPV 9.5 (7.4-10.4) fl Immature Gran % (Auto) 0.2 (0-0.5) % Neut % (Auto) 55.8 (45.5-73.1) % Lymph % (Auto) 33.8 (18.3-44.2) % [place] % (Auto) 6.5 (2.6-8.5) % Eos % (Auto) 3.4 (0-4.4) % Baso % (Auto) 0.3 (0.2-1.2) % Lymph # (Auto) 2.09 (0.9-3.2) K/mm3 [place] # (Auto) 0.4 (0.1-0.6) K/mm3 Eos # (Auto) 0.2 (0-0.3) K/mm3 Baso # (Auto) 0.0 (0.0-0.1) K/mm3 Abs Immat Gran (auto) 0.01 (0.00-0.031) K/mm3 Absolute Neuts (auto) 3.5 (1.3-6.7) K/mm3 Absolute Nucleated RBC 0.000 (0.0-0.012) K/mm3 Nucleated RBC % 0.0 (0.0-0.2) % Sodium 135 L (137-145) mmol/L Potassium 4.0 (3.4-5.0) mmol/L Chloride 105 (98-107) mmol/L Carbon Dioxide 26 (22-30) mmol/L Anion Gap 4 (4-12) mmol/L BUN 13 (7-17) mg/dL Creatinine 0.50 L (0.7-1.0) mg/dL Estim Creat Clear Calc 94 ml/min Estimated GFR > 60 (59 - ) Glucose 93 (65-110) mg/dL Calcium 9.1 (8.4-10.2) mg/dL Total Bilirubin 0.8 (0.2-1.3) mg/dL AST 27 (14-36) U/L ALT 18 (6-35) U/L Alkaline Phosphatase 75 (38-126) U/L Total Protein 8.0 (6.3-8.2) g/dL Albumin 4.6 (3.5-5.1) g/dL Urine Color Yellow (Yellow) Urine Appearance Cloudy H (Clear) Urine pH 7.0 (5.0-9.0) Ur Specific [place] 1.020 (1.001-1.035) Urine Protein Trace (Negative) mg/dL Urine Glucose (UA) Negative (Negative) mg/dL Urine Ketones Trace H (Negative) mg/dL Ur Blood (Man) Non-hemolyzed trace H (Negative) Urine Nitrate Negative (Negative) Urine Bilirubin Negative (Negative) Urine Urobilinogen 1.0 (<2.0) mg/dL Add Ur Microanalysis Reviewed Leukocyte Esterase Rfl 3+ H (Negative) NANCY/UL Urine RBC 6-10 H (0-2) /hpf Urine WBC >100 H (0-3) /hpf Ur Squamous Epith Cells Many H (Few) /hpf Urine Bacteria 4+ H /hpf Urine Casts 0-2 Urine Yeast (Budding) Present H (None) /hpf UCG Bedside Result Negative Reference Range: Negative Imaging Data Radiologist's impression: ITS Impressions Abdomen/Pelvis CT 10/08/23 20:08 IMPRESSION: Mild esophagitis. Otherwise no acute abdominal pelvic process detected. Discharge Plan Discharge Clinical Impression: UTI (urinary tract infection) Patient Disposition: Home, Self-Care Condition: Stable Instructions: Antibiotic Form Additional Instructions: Exam and imaging today are overall reassuring. Your workup today shows evidence of UTI Please take antibiotics through the full course. Use Tylenol and ibuprofen for pain control. Zofran for nausea Prescriptions: New cephalexin 500 mg capsule 500 mg PO Q8H 7 Days Qty: 21 0RF ondansetron 4 mg tablet,disintegrating 4 mg PO Q8H PRN (Reason: nausea and vomiting) Qty: 10 0RF No Action amoxicillin 875 mg tablet 875 mg PO Q12H 10 Days Qty: 20 0RF ascorbic acid (vitamin C) [Vitamin C] 1,000 mg Tablet 1 g PO DAILY cetirizine [Zyrtec] 10 mg Tablet 10 mg PO DAILY cholecalciferol (vitamin D3) [Vitamin D3] 25 mcg (1,000 unit) Tablet,Chewable 25 mcg PO DAILY Azo Cranberry 250 mg Tablet,Chewable 250 mg PO BID Hair, Skin and Nails (biotin) 10,000 mcg Tablet,Chewable 10,000 mcg PO DAILY tramadol 50 mg tablet 50 mg PO Q6H PRN (Reason: pain) Qty: 20 0RF albuterol sulfate [Ventolin HFA] 90 mcg/actuation HFA aerosol inhaler 2 puff INHALATION .Q4 hours PRN (Reason: cough) Qty: 8.5 0RF fluoxetine 20 mg capsule 20 mg PO DAILY Qty: 90 2RF Follow-up/Referrals: Eddie Gonzalez DO [Primary Care Provider] - Stand Alone Forms: Work/School Release IP Time of Disposition: 20:43
[2023-10-08 18:52] VITALS: BP 105/69; PULSE 68; RESP 18; O2SAT 99
[2023-10-08 19:01] VITALS: BP 107/78; PULSE 69; RESP 16; O2SAT 100
[2023-10-08 19:02] VITALS: PULSE 62; RESP 17; O2SAT 100
[2023-10-08 19:07] LABS: Basophils Percent Auto 0.3 % (0.2-1.2); Eosinophils Absolute Auto 0.2 K/mm3 (0-0.3); Eosinophils Percent Auto 3.4 % (0-4.4); Hematocrit 42.4 % (37.0-47.0); Hemoglobin 13.6 g/dL (12.0-15.0); Immature Granulocyte Absolute 0.01 K/mm3 (0.00-0.031); Immature Granulocyte Percent A 0.2 % (0-0.5); Lymphocytes Absolute Auto 2.09 K/mm3 (0.9-3.2); Lymphocytes Percent Auto 33.8 % (18.3-44.2); Mean Corpuscular HGB Conc 32.1 g/dl (32-36); Mean Corpuscular Volume 96.6 fl (80-100); Mean Platelet Volume 9.5 fl (7.4-10.4); Monocytes Absolute Auto 0.4 K/mm3 (0.1-0.6); Monocytes Percent Auto 6.5 % (2.6-8.5); Neutrophils Absolute Auto 3.5 K/mm3 (1.3-6.7); Neutrophils Percent Auto 55.8 % (45.5-73.1); Platelet Count Result 209 k/mm3 (150-375); Red Blood Count 4.39 M/mm3 (4.2-5.4); Red Cell Distribution Width 13.1 % (11.5-14.5); White Blood Count 6.2 K/mm3 (4.5-10.0)
[2023-10-08] MEDS: ACETAMINOPHEN 500 MG TABLET 1000 MG PO (19:15)
[2023-10-08] MEDS: SODIUM CHLORIDE 0.9% IV 1,000 ML 999 ML IV CONT (19:16)
[2023-10-08 19:19] LABS: Alanine Aminotransferase 18 U/L (6-35); Albumin Level 4.6 g/dL (3.5-5.1); Alkaline Phosphatase 75 U/L (38-126); Anion Gap 4 mmol/L (4-12); Aspartate Amino Transferase 27 U/L (14-36); Bilirubin,Total 0.8 mg/dL (0.2-1.3); Blood Urea Nitrogen 13 mg/dL (7-17); Calcium 9.1 mg/dL (8.4-10.2); Carbon Dioxide 26 mmol/L (22-30); Chloride 105 mmol/L (98-107); Estimated CRCL calculation 94 ml/min; Estimated Glomerular Filt Rate > 60; Glucose 93 mg/dL (65-110); Sodium 135 mmol/L (137-145)
[2023-10-08 19:24] VITALS: PULSE 62; RESP 17; O2SAT 100
[2023-10-08 19:36] LABS: Appearance Urine Cloudy (Clear); Bacteria Urine 4+ /hpf; Bilirubin Urine Negative (Negative); Blood Urine Non-Hemolyzed Trace (Negative); Budding Yeast Urine Present /hpf; Color Urine Yellow (Yellow); Glucose Urine UA Negative (Negative); Ketones Urine Trace mg/dL (Negative); Leukocyte Esterase Ur 3+ LEU/UL (Negative); Need Manual Microscopic Reviewed; Nitrate Urine Negative (Negative); Non Pathogenic Casts 0-2; Protein Urine Trace mg/dL (Negative); Squamous Epithelial Cell Urine Many /hpf (Few); WBC Urine >100 /hpf (0-3)
[2023-10-08 19:37] LABS: Add Urine Microscopic? YES
[2023-10-08 19:52] VITALS: PULSE 71; RESP 19; O2SAT 100
[2023-10-08] MEDS: CEPHALEXIN 500 MG CAPSULE PO (20:56)
[2023-10-08 20:59] VITALS: BP 98/76; PULSE 63; RESP 18; O2SAT 100
== END 2023-10-08 21:01 | disposition home or self-care (01) ==
PROVIDERS: Preventive Medicine Aerospace Medicine; Emergency Provider Physician Assistant; PCP Internal Medicine
DX: N39.0 Urinary tract infection, site not specified (principal); J45.909 Unspecified asthma, uncomplicated; F41.8 Other specified anxiety disorders; Z87.442 Personal history of urinary calculi; K20.90 Esophagitis, unspecified without bleeding
CPT/HCPCS: 36415; 74177; 80053; 81001; 81025; 85025; 87077; 87086; 87088; 96360; 99284; A9270; J7030; Q9967

== ENCOUNTER 2024-05-21 08:22 | Outpatient (CLI) | payer OTHER, SELFPAY ==
[2024-05-21 09:13] LABS: Basophils Percent Auto 0.9 % (0.2-1.2); Eosinophils Absolute Auto 0.1 K/mm3 (0-0.3); Eosinophils Percent Auto 1.1 % (0-4.4); Hematocrit 37.5 % (37.0-47.0); Hemoglobin 12.2 g/dL (12.0-15.0); Immature Granulocyte Absolute 0.06 K/mm3 (0.00-0.031); Immature Granulocyte Percent A 1.4 % (0-0.5); Lymphocytes Absolute Auto 1.68 K/mm3 (0.9-3.2); Lymphocytes Percent Auto 38.2 % (18.3-44.2); Mean Corpuscular HGB Conc 32.5 g/dl (32-36); Mean Corpuscular Hemoglobin 31.7 pg (26-34); Mean Corpuscular Volume 97.4 fl (80-100); Monocytes Absolute Auto 0.4 K/mm3 (0.1-0.6); Monocytes Percent Auto 8.6 % (2.6-8.5); Neutrophils Absolute Auto 2.2 K/mm3 (1.3-6.7); Neutrophils Percent Auto 49.8 % (45.5-73.1); Platelet Count Result 211 k/mm3 (150-375); Red Blood Count 3.85 M/mm3 (4.2-5.4); Red Cell Distribution Width 12.9 % (11.5-14.5); White Blood Count 4.4 K/mm3 (4.5-10.0)
[2024-05-21 09:23] LABS: Alanine Aminotransferase 12 U/L (6-35); Albumin Level 4.6 g/dL (3.5-5.1); Alkaline Phosphatase 51 U/L (38-126); Anion Gap 5 mmol/L (4-12); Aspartate Amino Transferase 23 U/L (14-36); Bilirubin,Total 0.7 mg/dL (0.2-1.3); Blood Urea Nitrogen 18 mg/dL (7-17); Carbon Dioxide 28 mmol/L (22-30); Chloride 106 mmol/L (98-107); Cholesterol 182 mg/dL (0-200); Estimated Glomerular Filt Rate > 60; Glucose 91 mg/dL (65-110); HDL Direct 64 mg/dL; Potassium 3.9 mmol/L (3.4-5.0); Sodium 139 mmol/L (137-145); Triglycerides 69 mg/dL (<150)
[2024-05-21 09:35] LABS: LDL Cholesterol Direct 79 mg/dL
[2024-05-21 09:42] LABS: Iron 95 ug/dL (37-170)
[2024-05-21 09:52] LABS: Percent Iron Saturation 41 % (20-50)
[2024-05-21 11:33] LABS: Vitamin D 25 Hydroxy 59.8 ng/mL
== END 2024-05-21 08:23 | disposition home or self-care (01) ==
PROVIDERS: PCP Nurse Practitioner; Visit Provider Nurse Practitioner
DX: D50.9 Iron deficiency anemia, unspecified (principal); E55.9 Vitamin D deficiency, unspecified; F41.8 Other specified anxiety disorders; Z13.220 Encounter for screening for lipoid disorders
CPT/HCPCS: 36415; 80053; 80061; 82306; 82728; 83540; 83550; 85025

== ENCOUNTER 2024-07-04 11:09 | Emergency (ER) | payer OTHER, SELFPAY ==
--- NOTE | ~2024-07-04 | CT_ITS ---
EXAMINATION: CT abdomen pelvis w con DATE: 07/04/2024 13:03 INDICATION: Left upper quadrant abdominal pain TECHNIQUE: Computed tomography (CT) of the abdomen and pelvis was performed with 100 mL Omnipaque-350 intravenous contrast. Automated exposure control and iterative reconstruction technique were employe d. The dose-length product was 188.52 mGy-cm. COMPARISON: 10/08/2023 FINDINGS: Lung bases are clear. Heart size is normal. No pericardial or pleural effusion. A few small low-atten uation hepatic cysts the largest measuring 1 cm in maximal diameter. Gallbladder, spleen, pancreas, b ilateral adrenal glands and kidneys are normal. Bowels are unremarkable. The appendix is not visualiz ed. No pericecal inflammatory change to suggest acute appendicitis. The uterus is not identified and has likely been surgically resected. 5.2 cm complex cystic lesion at the right adnexa with simple flu id attenuation anteriorly and high attenuation dependently layering fluid posteriorly with appearance most suggestive of a hematocrit level within a hemorrhagic cyst. Left adnexa is unremarkable. No lauro e intraperitoneal gas or fluid. No pathologically enlarged abdominal or pelvic lymphadenopathy. 1.2 c m Bartholin cyst at the left side of the introitus. Bones are unremarkable. IMPRESSION: 1. 5.2 cm complex cystic left adnexal lesion with appearance most suggestive of a proteinaceous/hemor rhagic cyst. Would recommend follow-up 6-12 week follow-up pelvic ultrasound to document resolution. Reviewed, dictated and finalized at location B. [facility] IMPRESSION: 1. 5.2 cm complex cystic left adnexal lesion with appearance most suggestive of a proteinaceous/hemorrhagic cyst. Would recommend follow-up 6-12 week follow-u p pelvic ultrasound to document resolution.
[2024-07-04 11:25] VITALS: BP 101/73; PULSE 80; RESP 18; TEMP 36.6; O2SAT 100
[2024-07-04 12:17] LABS: Basophils Percent Auto 0.4 % (0.2-1.2); Eosinophils Absolute Auto 0.1 K/mm3 (0-0.3); Eosinophils Percent Auto 1.1 % (0-4.4); Hematocrit 41.3 % (37.0-47.0); Hemoglobin 14.1 g/dL (12.0-15.0); Immature Granulocyte Absolute 0.02 K/mm3 (0.00-0.031); Immature Granulocyte Percent A 0.4 % (0-0.5); Lymphocytes Absolute Auto 1.83 K/mm3 (0.9-3.2); Lymphocytes Percent Auto 33.1 % (18.3-44.2); Mean Corpuscular HGB Conc 34.1 g/dl (32-36); Mean Corpuscular Hemoglobin 32.5 pg (26-34); Mean Corpuscular Volume 95.2 fl (80-100); Mean Platelet Volume 9.5 fl (7.4-10.4); Monocytes Absolute Auto 0.4 K/mm3 (0.1-0.6); Monocytes Percent Auto 7.2 % (2.6-8.5); Neutrophils Absolute Auto 3.2 K/mm3 (1.3-6.7); Neutrophils Percent Auto 57.8 % (45.5-73.1); Platelet Count Result 198 k/mm3 (150-375); Red Blood Count 4.34 M/mm3 (4.2-5.4); Red Cell Distribution Width 12.8 % (11.5-14.5); White Blood Count 5.5 K/mm3 (4.5-10.0)
[2024-07-04 12:21] LABS: Add Urine Microscopic? NO; Appearance Urine Clear (Clear); Bilirubin Urine Negative (Negative); Blood Urine Negative (Negative); Color Urine Yellow (Yellow); Glucose Urine UA Negative (Negative); Ketones Urine Negative (Negative); Leukocyte Esterase Ur Negative LEU/UL (Negative); Nitrate Urine Negative (Negative); Protein Urine Negative (Negative); Urobilinogen Urine 0.2 mg/dL (<2.0); pH Urine 6.5 (5.0-9.0)
[2024-07-04 12:27] LABS: Alanine Aminotransferase 15 U/L (6-35); Albumin Level 5.1 g/dL (3.5-5.1); Alkaline Phosphatase 55 U/L (38-126); Anion Gap 10 mmol/L (4-12); Aspartate Amino Transferase 23 U/L (14-36); Bilirubin,Total 0.9 mg/dL (0.2-1.3); Blood Urea Nitrogen 19 mg/dL (7-17); Calcium 9.8 mg/dL (8.4-10.2); Carbon Dioxide 27 mmol/L (22-30); Chloride 102 mmol/L (98-107); Estimated CRCL calculation 103 ml/min; Estimated Glomerular Filt Rate > 60; Glucose 82 mg/dL (65-110); Lipase 72 U/L (23-300); Potassium 3.8 mmol/L (3.4-5.0); Sodium 139 mmol/L (137-145)
--- NOTE | 2024-07-04 14:05 | ED.ABDPAIN ---
HPI - Abdominal Pain General Chief Complaint: Abdominal Pain Stated Complaint: abd pain, nausea Time Seen by Provider: 07/04/24 12:24 Source: patient Mode of arrival: ambulatory Limitations: no limitations History of Present Illness HPI narrative: 34-year-old with a history of anxiety, depression here with the complaints of left upper quadrant pain on and off for past few months. Patient states that she had pain last month and again for past 2 days she has been having left upper quadrant pain. She denies any nausea, vomiting. No history of peptic ulcer disease denies any blood in the stool or black color stool. Has history of constipation. MD elicited complaint: abdominal pain Pertinent past history: none Onset (ago): day(s) (2) Pain Consistency: intermittent Location: LUQ Severity: mild Quality: aching Radiation: none Migration to: no migration Exacerbating factors: nothing Relieving factors: nothing Associated symptoms: denies other symptoms Related Data Home Medications ?Medication ?Instructions ?Recorded ?Confirmed ?Last Taken ?Type biotin 10,000 mcg chewable tablet 10,000 mcg PO DAILY 06/02/23 06/22/24 06/03/23 History (Hair, Skin and Nails (biotin)) cetirizine 10 mg tablet (Zyrtec) 10 mg PO DAILY 06/02/23 06/22/24 06/07/23 History cholecalciferol (vitamin D3) 25 25 mcg PO DAILY 06/02/23 06/22/24 06/03/23 History mcg (1,000 unit) chewable tablet (Vitamin D3) cranberry fruit concentrate 250 mg 250 mg PO BID 06/02/23 06/22/24 06/03/23 History chewable tablet (Azo Cranberry) Allergies Allergy/AdvReac Type Severity Reaction Status Date / Time hydrocodone AdvReac Intermediate Nausea and Verified 06/22/24 10:04 Vomiting oxycodone AdvReac Intermediate Nausea and Verified 06/22/24 10:04 Vomiting Review of Systems Review of Systems: All systems reviewed & are unremarkable except as noted in HPI and below Constitutional: Constitutional: Reports no additional constitutional complaints Eyes: Eyes: Reports no additional eye complaints ENT: Reports system reviewed and no additional complaints, except as documented Cardiovascular: Cardiovascular: Reports no additional cardiovascular complaints Respiratory: Respiratory: Reports no additional respiratory complaints Gastrointestinal: Gastrointestinal: Reports as per HPI Genitourinary: Genitourinary: Reports no additional female genitourinary complaints Integumentary/Breasts: Skin/Breast: Reports system reviewed and no additional complaints, except as docu Neurologic: Reports system reviewed and no additional complaints, except as documented Psychiatric: Psychiatric: Reports no additional psychiatric complaints Endocrine: Endocrine: Reports no additional endocrine complaints PMFSH Past Medical History Medical History Abdominal pain Localized swelling, mass and lump, unspecified Shoulder pain, left Carpal tunnel syndrome De Quervain's tenosynovitis, left Numbness and tingling in left arm Asthma Decreased sex drive Abdominal bloating Rectal pain Sinusitis Screening for lipid disorders Abdominal bloating Post depression Unwanted fertility Pharyngitis, acute Urine ketones Frequent UTI Left elbow fracture Skin lesion Anxiety with depression Surgical History Surgical History H/O: hysterectomy Previous section H/O wrist surgery 2018 H/O elbow surgery 2018 deliv NOS-unsp Family History Family History Father Diabetes mellitus Skin cancer Mother Hypertension Sibling Hypothyroidism Social History Social History (Updated 06/22/24 @ 10:02 by Alicia Ribera [facility]) Smoking status: Never smoker Alcohol intake: current Drinks per week: 1 Substance use: never Do You Feel Safe in your Home?: Yes Lack of Transportation: No Lack of Food: Sometimes True Current Housing: I Have Housing Concerned About Future Housing: No Difficulty Paying Gas/Electric Bills: YES Difficulty Paying for Meds: YES Currently Unemployed: No Education: High School Diploma/GED Difficulty w/ Childcare or Family Care: No Living arrangements: with family Gender identity (if verbalized by the patient): Female Spiritual care concerns: No Exam Narrative: GENERAL: Well-appearing, well-nourished, and in no acute distress. HEAD: Normocephalic, atraumatic. EYES: PERRLA and EOMI. ENT: Nares clear, no rhinorrhea or epistaxis. Mucous membranes moist. NECK: Supple. CHEST: Clear to auscultation. No respiratory distress. HEART: Regular rate and rhythm. No murmur heard. Normal peripheral pulses. ABDOMEN: Soft, nontender, nondistended, normal active bowel sounds. EXTREMITIES: Normal range of motion. No edema. SKIN: Warm, dry, no rash. NEURO: No focal deficits. Alert and oriented x3. PSYCH: Normal mood and affect. Course Course Emergency Course: Patient remained asymptomatic while she is here in the ER. Informed her about the lab work and CT findings. Recommended her to follow-up with the OBGYN regarding her ovarian cyst. She does feel comfortable going home. Advised her to take Pepcid AC as needed if she is having left upper quadrant pain. Vital Signs Vital signs: Vital Signs Temperature 36.6 C 07/04/24 11:25 Pulse Rate 80 07/04/24 11:25 Respiratory Rate 18 07/04/24 11:25 Blood Pressure 101/73 07/04/24 11:25 Pulse Oximetry 100 07/04/24 11:25 Oxygen Delivery Room Air 07/04/24 11:25 Temperature 36.6 C 07/04/24 11:25 Pulse Rate 80 07/04/24 11:25 Respiratory Rate 18 07/04/24 11:25 Blood Pressure 101/73 07/04/24 11:25 Pulse Oximetry 100 07/04/24 11:25 Oxygen Delivery Room Air 07/04/24 11:25 MDM - Abdominal Pain Lab Data Attestation: I reviewed the patient's lab results. 07/04/24 12:06 07/04/24 12:06 Labs: Lab Results 07/04/24 Range/Units 12:06 WBC 5.5 (4.5-10.0) K/mm3 RBC 4.34 (4.2-5.4) M/mm3 Hgb 14.1 (12.0-15.0) g/dL Hct 41.3 (37.0-47.0) % MCV 95.2 (80-100) fl MCH 32.5 (26-34) pg MCHC 34.1 (32-36) g/dl RDW 12.8 (11.5-14.5) % Plt Count 198 (150-375) k/mm3 MPV 9.5 (7.4-10.4) fl Immature Gran % (Auto) 0.4 (0-0.5) % Neut % (Auto) 57.8 (45.5-73.1) % Lymph % (Auto) 33.1 (18.3-44.2) % [place] % (Auto) 7.2 (2.6-8.5) % Eos % (Auto) 1.1 (0-4.4) % Baso % (Auto) 0.4 (0.2-1.2) % Lymph # (Auto) 1.83 (0.9-3.2) K/mm3 [place] # (Auto) 0.4 (0.1-0.6) K/mm3 Eos # (Auto) 0.1 (0-0.3) K/mm3 Baso # (Auto) 0.0 (0.0-0.1) K/mm3 Abs Immat Gran (auto) 0.02 (0.00-0.031) K/mm3 Absolute Neuts (auto) 3.2 (1.3-6.7) K/mm3 Absolute Nucleated RBC 0.000 (0.0-0.012) K/mm3 Nucleated RBC % 0.0 (0.0-0.2) % Sodium 139 (137-145) mmol/L Potassium 3.8 (3.4-5.0) mmol/L Chloride 102 (98-107) mmol/L Carbon Dioxide 27 (22-30) mmol/L Anion Gap 10 (4-12) mmol/L BUN 19 H (7-17) mg/dL Creatinine 0.50 L (0.7-1.0) mg/dL Estim Creat Clear Calc 103 ml/min Estimated GFR > 60 (59 - ) Glucose 82 (65-110) mg/dL Calcium 9.8 (8.4-10.2) mg/dL Total Bilirubin 0.9 (0.2-1.3) mg/dL AST 23 (14-36) U/L ALT 15 (6-35) U/L Alkaline Phosphatase 55 (38-126) U/L Total Protein 9.0 H (6.3-8.2) g/dL Albumin 5.1 (3.5-5.1) g/dL Lipase 72 (23-300) U/L Urine Color Yellow (Yellow) Urine Appearance Clear (Clear) Urine pH 6.5 (5.0-9.0) Ur Specific [place] 1.020 (1.001-1.035) Urine Protein Negative (Negative) mg/dL Urine Glucose (UA) Negative (Negative) mg/dL Urine Ketones Negative (Negative) mg/dL Ur Blood (Man) Negative (Negative) Urine Nitrate Negative (Negative) Urine Bilirubin Negative (Negative) Urine Urobilinogen 0.2 (<2.0) mg/dL Leukocyte Esterase Rfl Negative (Negative) NANCY/UL Imaging Data Radiologist's impression: ITS Impressions Abdomen/Pelvis CT 07/04/24 13:06 IMPRESSION: 1. 5.2 cm complex cystic left adnexal lesion with appearance most suggestive of a proteinaceous/hemorrhagic cyst. Would recommend follow-up 6-12 week follow-up pelvic ultrasound to document resolution. Discharge Plan Discharge Clinical Impression: Abdominal pain Ovarian cyst Qualifiers: Laterality: left Qualified Code(s): N83.202 - Unspecified ovarian cyst, left side Patient Disposition: Home, Self-Care Condition: Stable Instructions: Antibiotic Form, Ovarian Cyst (ED) Additional Instructions: can take pepcid as needed , follow with your OB- [employer] Patient Language: Serbian Prescriptions: No Action fluoxetine 10 mg capsule 10 mg PO DAILY Qty: 90 1RF cetirizine [Zyrtec] 10 mg Tablet 10 mg PO DAILY cholecalciferol (vitamin D3) [Vitamin D3] 25 mcg (1,000 unit) Tablet,Chewable 25 mcg PO DAILY Azo Cranberry 250 mg Tablet,Chewable 250 mg PO BID Hair, Skin and Nails (biotin) 10,000 mcg Tablet,Chewable 10,000 mcg PO DAILY albuterol sulfate [Ventolin HFA] 90 mcg/actuation HFA aerosol inhaler 2 puff INHALATION .Q4 hours PRN (Reason: cough) Qty: 8.5 0RF Follow-up/Referrals: Arline Ly NP [Primary Care Provider] - Time of Disposition: 14:23
[2024-07-04 14:37] VITALS: BP 101/71; PULSE 74; RESP 20; TEMP 36.7; O2SAT 100
== END 2024-07-04 14:38 | disposition home or self-care (01) ==
PROVIDERS: Emergency Medicine; Emergency Provider Family Medicine; PCP Nurse Practitioner
DX: N83.202 Unspecified ovarian cyst, left side (principal); R10.12 Left upper quadrant pain
CPT/HCPCS: 36415; 74177; 80053; 81003; 83690; 85025; 99284; Q9967

== ENCOUNTER 2025-06-07 10:31 | Emergency (ER) | payer OTHER, SELFPAY ==
[2025-06-07 10:39] VITALS: BP 94/53; PULSE 81; RESP 16; TEMP 36.1; O2SAT 99
--- NOTE | 2025-06-07 10:50 | ED.FEMALEGU ---
HPI - Female Genitourinary General Chief complaint: Urogenital-Female Stated complaint: UTI Time Seen by Provider: 06/07/25 10:51 Source: patient, RN notes reviewed and old records reviewed Mode of arrival: ambulatory Limitations: no limitations History of Present Illness HPI Narrative: 34 year old female who presents to [facility] care with complaints of urinary tract infection symptoms for the past 2 weeks which includes urinary burning, bladder pressure and foul odor of urine with urinary frequency and also some left flank pain. Patient reports that she has had some nausea denies any vomiting or diarrhea or any known fevers. Patient reports that she does have history of past UTIs. Patient reports that she has been taking cranberry pills for her symptoms. MD elicited complaint: UTI Pertinent past history: other (past UTI's) Onset (ago): week(s) (2) Location of symptoms: suprapubic, urethra and flank (left) Severity: moderate Quality of pain: burning and aching Vaginal discharge: none Vaginal bleeding: none Treatment prior to arrival: other (cranberry pills) Related Data Home Medications ?Medication ?Instructions ?Recorded ?Confirmed ?Last Taken ?Type biotin 10,000 mcg chewable tablet 10,000 mcg PO DAILY 06/02/23 03/06/25 06/03/23 History (Hair, Skin and Nails (biotin)) cholecalciferol (vitamin D3) 25 25 mcg PO DAILY 06/02/23 03/06/25 06/03/23 History mcg (1,000 unit) chewable tablet (Vitamin D3) Allergies Allergy/AdvReac Type Severity Reaction Status Date / Time hydrocodone AdvReac Intermediate Nausea and Verified 06/07/25 10:45 Vomiting oxycodone AdvReac Intermediate Nausea and Verified 06/07/25 10:45 Vomiting Review of Systems Review of Systems: CONSTITUTIONAL: Denies fever, chills, or sweats. CARDIOVASCULAR: Denies chest pain, palpitations, or edema. RESPIRATORY: Denies cough or dyspnea. GASTROINTESTINAL: Denies abdominal pain reports bladder pressure and positive for nausea, no vomiting, or diarrhea. GENITOURINARY: Reports dysuria, frequency, urgency. Reports left flank pain denies any visual hematuria. SKIN: Denies rash or itching. MUSCULOSKELETAL: Denies back pain or myalgia. Positive for left CVA tenderness NEUROLOGIC: Denies headache All systems reviewed & are unremarkable except as noted in HPI and below PMFSH Past Medical History Medical History Abdominal pain Localized swelling, mass and lump, unspecified Shoulder pain, left Carpal tunnel syndrome De Quervain's tenosynovitis, left Numbness and tingling in left arm Asthma Decreased sex drive Abdominal bloating Rectal pain Sinusitis Screening for lipid disorders Abdominal bloating Post depression Unwanted fertility Pharyngitis, acute Urine ketones Frequent UTI Left elbow fracture Skin lesion Anxiety with depression Surgical History Surgical History H/O: hysterectomy Previous section H/O wrist surgery 2018 H/O elbow surgery 2018 deliv NOS-unsp Family History Family History Father Diabetes mellitus Skin cancer Mother Hypertension Sibling Hypothyroidism Social History Social History Smoking status: Never smoker Alcohol intake: current Drinks per week: 1 Substance use: never Lack of Transportation: No Lack of Food: Sometimes True Current Housing: I Have Housing Concerned About Future Housing: No Difficulty Paying Gas/Electric Bills: YES Difficulty Paying for Meds: YES Currently Unemployed: No Education: High School Diploma/GED Difficulty w/ Childcare or Family Care: No Living arrangements: with family Gender identity (if verbalized by the patient): Female Spiritual care concerns: No Comments At time of signature, agree with nursing past medical, surgical, social and family history. There is no relevant family history pertinent to the presenting complaint Exam Narrative: GENERAL: Well-appearing, well-nourished, and in no acute distress. HEAD: Normocephalic, atraumatic. NECK: Supple.no lymphadenopathy CHEST: Clear to auscultation. No respiratory distress.SAO2 99% on room air HEART: Regular rate and rhythm. No murmur heard. Normal peripheral pulses. ABDOMEN: Soft, tender bladder area, nondistended, normal active bowel sounds. left CVA tenderness Positive for urinary burning frequency and urgency EXTREMITIES: Normal range of motion. No edema. SKIN: Warm, dry, no rash. NEURO: No focal deficits. Alert and oriented x3. Course Course Level of Care: Express Care Visit Vital Signs Vital signs: Vital Signs Temperature 36.1 C L 06/07/25 10:39 Pulse Rate 81 06/07/25 10:39 Respiratory Rate 16 06/07/25 10:39 Blood Pressure 94/53 L 06/07/25 10:39 Pulse Oximetry 99 06/07/25 10:39 Oxygen Delivery Room Air 06/07/25 10:39 Temperature 36.1 C L 06/07/25 10:39 Pulse Rate 81 06/07/25 10:39 Respiratory Rate 16 06/07/25 10:39 Blood Pressure 94/53 L 06/07/25 10:39 Pulse Oximetry 99 06/07/25 10:39 Oxygen Delivery Room Air 06/07/25 10:39 MDM MDM Narrative Medical decision making narrative: Patient presents with urinary tract infection symptoms for 2 week duration. Patient is appropriate for out patient treatment and follow up. Patient received anticipatory guidance and reviewed reasons of when to seek care in the ED with patient with understanding voiced. Differential Diagnosis Differential Diagnosis: Differential diagnostic considerations for female urogenital? issues include urinary tract infection, bacterial vaginosis, cervicitis, ovarian cyst, vaginitis, STI exposure, ovarian torsion, ectopic , cyst of Bartholin?s gland, cystitis, dysmenorrhea.?? Lab Data MDM Lab Attestation statement: I personally reviewed the patient's lab results. Lab results narrative: urine dip reviewed urine is cloudy in appearance, sent for culture Labs: Lab Results 06/07/25 Range/Units 11:01 POC Urine Color Dark POC Urine Clarity Cloudy POC Urine pH 6.0 POC Ur Specif [place] 1.020 POC Urine Protein Negative (Negative) POC Ur Glucose (UA) Negative (Negative) POC Urine Ketones 1+ (Negative) POC Urine Blood Negative (Negative) POC Urine Nitrite Negative (Negative) POC Urine Bilirubin Negative (Negative) POC Urine Urobilinogen 0.2 POC U Leukocyte Esteras Negative (Negative) reviewed Critical Care Time Critical Care Time Critical Care Time: No Discharge Plan Discharge Clinical Impression: Urinary tract infection Patient Disposition: Home Condition: Stable Instructions: Antibiotic Form, Urinary Tract Infection in Women (ED) Additional Instructions: Increase fluids especially cranberry juice and water Avoid caffeine and carbonated beverages Antibiotic as directed Zofran for any nausea and vomiting Tylenol/ibuprofen for pain or fever Follow-up with her primary care provider if further problems or concerns Recheck if you have fever over 101, nausea and vomiting. If your symptoms persist, change or worsen significantly before you can contact your personal physician then please, without delay, go to the emergency department for further evaluation. Follow-up with PCP in 7-10 days or sooner if needed your urine will be sent for culture Patient Language: Prydeinig Prescriptions: New nitrofurantoin monohyd/m-cryst [Macrobid] 100 mg capsule 100 mg PO Q12H 7 Days Qty: 14 0RF Rx Instructions: must administer with a meal/food ondansetron 4 mg tablet,disintegrating 4 mg PO Q6H PRN (Reason: nausea and vomiting) Qty: 20 0RF Rx Instructions: whatever preparation is covered by insurance No Action cholecalciferol (vitamin D3) [Vitamin D3] 25 mcg (1,000 unit) Tablet,Chewable 25 mcg PO DAILY Hair, Skin and Nails (biotin) 10,000 mcg Tablet,Chewable 10,000 mcg PO DAILY Follow-up/Referrals: Arline Ly APRN [Primary Care Provider, Internal Medicine] Time of Disposition: 11:07 Quality [place] Coma Scale Eyes: Open Verbal: Oriented and Alert Motor: Follows Commands Carri Coma Total Score: 15
[2025-06-07 11:04] LABS: EDUAAPPEAR Cloudy; EDUABILI Negative (Negative); EDUABLOOD Negative (Negative); EDUACOLOR1 Dark; EDUAGLUCOSE Negative (Negative); EDUAKETONE 1+ (Negative); EDUALEUKO Negative (Negative); EDUANITRATE Negative (Negative); EDUAPH 6.0; EDUAPROTEIN Negative (Negative); EDUASPGRAVITY 1.020; EDUAUROBILI 0.2
== END 2025-06-07 11:14 | disposition home or self-care (01) ==
PROVIDERS: Emergency Provider Registered Nurse; PCP Nurse Practitioner
DX: N39.0 Urinary tract infection, site not specified (principal); J45.909 Unspecified asthma, uncomplicated
CPT/HCPCS: 81003; 87086; 99213; G0463